=== PATIENT | male | born 1970 | race Caucasian/White ===

== ENCOUNTER 2020-11-22 19:14 | Emergency (ER) | payer SELFPAY ==
[2020-11-22 19:27] VITALS: BP 117/80; PULSE 112; RESP 17; TEMP 36.6; O2SAT 96; BMI 19.3
[2020-11-22 19:40] VITALS: BP 117/86; PULSE 112; RESP 18; TEMP 36.8; O2SAT 97
--- NOTE | 2020-11-22 19:42 | PC.NURSE ---
Patient does not tolerate procedures, pinches and bites at staff, sat in floor when xray came and refused to get up. Patient companion caregiver trying to calm patient at this time.
--- NOTE | 2020-11-22 19:51 | PC.NURSE ---
FSBS when arriving to room 437, doctor notified.
[2020-11-22 19:52] LABS: Glucose Point of Care 437 mg/dL (70-110)
--- NOTE | 2020-11-22 20:05 | CTR_ITS ---
PROCEDURE INFORMATION: Exam: CT Abdomen And Pelvis With Contrast Exam date and time: 11/22/2020 8:05 PM Age: 50 years old Clinical indication: Abdominal pain; Localized; Right upper quadrant (ruq); Prior surgery; Surgery type: Gb; Patient HX: Ruq pain TECHNIQUE: Imaging protocol: Computed tomography of the abdomen and pelvis with contrast. Radiation optimization: All CT scans at this facility use at least one of these dose optimization techniques: automated exposure control; mA and/or kV adjustment per patient size (includes targeted exams where dose is matched to clinical indication); or iterative reconstruction. Contrast material: OMNI 300; Contrast volume: 95 ml; Contrast route: INTRAVENOUS (IV); COMPARISON: No relevant prior studies available. RADIATION DOSE METRICS: Total DLP (mGy-cm): 972.34 FINDINGS: Liver: Normal. No mass. Gallbladder and bile ducts: Cholecystectomy. Mild diffuse dilation of the biliary system. Pancreas: The pancreatic head is unremarkable. Pancreatic body and tail are not clearly seen and possibly absent. Spleen: Negative for splenomegaly. Adrenal glands: Normal. No mass. Kidneys and ureters: Normal. No hydronephrosis. Stomach and bowel: No inflammatory bowel wall thickening changes are identified. Negative for bowel obstruction. Negative for bowel perforation. Moderate fecal volume. Appendix: No evidence of appendicitis. Intraperitoneal space: Unremarkable. No free air. No significant fluid collection. Vasculature: The main portal vein is patent, but substantially dilated up to 2.9 cm. The splenic vein is tortuous and moderately dilated. Abdominal aorta is nonaneurysmal. Scattered atherosclerotic plaque. Lymph nodes: Unremarkable. No enlarged lymph nodes. Urinary bladder: Unremarkable as visualized. Reproductive: Unremarkable as visualized. Bones/joints: There is a focal concavity of the superior endplate at T11. Vertebral alignment is unremarkable. Moderate severity L3-L4 level degenerative disc disease. Soft tissues: Unremarkable. CT/CT abdomen pelvis w con* [id number] IMPRESSION: Negative for acute abdominopelvic abnormality. Radiation Dose CTDIVOL = (mGy): DLP = 972.34 (mGy-cm)
--- NOTE | 2020-11-22 20:13 | ED_ITS ---
HPI - Abdominal Pain General: Chief Complaint: Abdominal Pain Stated Complaint: Needs Insulent Time Seen by Provider: 11/22/20 19:38 History of Present Illness: HPI narrative: 50-year-old male with a history of insulin-dependent diabetes and pancreatitis. He says he is been in pain for 3 days. He ran out of insulin 3 days ago, and has not had any. His blood sugar has steadily started to rise. He is thrown up several times today and several times yesterday as well. His pain is in the epigastrium and left upper quadrant. No fever. He says he has a history of a pancreatic pseudocyst and had surgery 1 time for this. MD elicited complaint: abdominal pain Pertinent past history: other Onset (ago): day(s) Pain Consistency: constant Location: Epigastric and LUQ Severity: severe Quality: stabbing and aching Radiation: none Migration to: no migration Exacerbating factors: vomiting and movement Relieving factors: nothing Associated Symptoms: Reports GI cramping, nausea, poor appetite and vomiting; Denies change in stool character, fever(s), hematuria, hematemesis and loose stools Review of Systems Const: Denies: fever(s) GI: Reports: nausea, vomiting and GI cramping; Denies: hematemesis or change in stool character : Denies: hematuria Physical Exam Const: GENERAL APPEARANCE: cooperative, ill appearing and frail appearing NUTRITIONAL APPEARANCE: thin ORIENTATION/CONSCIOUSNESS: Yes awake, Yes oriented to person, Yes oriented to place and Yes oriented to time HENMT: HEAD & SCALP: other (Small abrasions to scalp) Chest: COMMONS NORMALS: normal inspection of the chest Resp: COMMON NORMALS: normal respiratory effort, No use of accessory muscles and clear to auscultation bilaterally AUSCULTATION: clear to auscultation bilaterally Cardio: COMMON NORMALS: regular rate and regular rhythm RATE: regular rate RHYTHM: regular rhythm GI: INSPECTION: Yes normal to inspection AUSCULTATION: Yes Hypoactive bowel sounds present PALPATION: Yes Tenderness to palpation present (GI) Details: LUQ and No Rebound tenderness present Neuro: SENSORIUM/ORIENTATION: Yes oriented to person, Yes oriented to place and Yes oriented to time Course Vital Signs: Vital signs: Vital Signs Temperature 97.5 F L 11/22/20 21:58 Pulse Rate 88 11/22/20 21:58 Respiratory Rate 18 11/22/20 21:58 Blood Pressure 144/97 11/22/20 21:58 Pulse Oximetry 98 11/22/20 21:58 MDM - Abdominal Pain MDM Narrative: Medical decision making narrative: Blood sugar was down to 309 after 2 L of fluid. White blood cell count is 12.6. Other labs are benign including a lipase of 24, normal liver enzymes. CT of the belly is negative for acute problems. He is asking for more pain medication currently. We will give him some. He was given 8 units of IV insulin. When his blood sugar is down further, he will be released on his home doses of insulin. Lab Data: Labs: Lab Results 11/22/20 11/22/20 11/22/20 Range/Units 19:49 19:55 19:55 WBC 12.6 H (4.0-10.0) 10^3/ uL RBC 4.68 (4.1-5.3) 10^6/u L Hgb 13.4 (11.7-16.6) g/dL Hct 39.9 L (42.0-52.0) % MCV 85.3 (80-94) fl MCH 28.6 (28.0-34.0) pg MCHC 33.6 (30.0-36.0) g/dL RDW 15.6 H (12.1-15.1) % Plt Count 222 (130-400) 10^3/c mm MPV 10.9 H (7.4-10.4) fL Neut % (Auto) 60.1 % Lymph % (Auto) 31.8 % [place] % (Auto) 7.0 % Eos % (Auto) 0.3 % Baso % (Auto) 0.4 % Neut # (Auto) 7.55 (1.8-7.7) 10^3/u L Lymph # (Auto) 4.0 (0.8-4.8) 10^3/u L [place] # (Auto) 0.9 (0.2-0.9) 10^3/u L Eos # (Auto) 0.0 (0.0-0.8) 10^3/u L Baso # (Auto) 0.1 (0.0-0.1) 10^3/u L Nucleated RBC % (a uto) 0 % Nucleated RBCs # 0.0 /100WBC Specimen Type Sample Site ABG pH (7.35-7.45) ABG pCO2 (35-45) mmHg ABG pO2 (80.0-100.0) mmH g ABG HCO3 (22-26) mmol/L ABG Base Excess (-2.0-2.0) mmol/ L Venkata Test Hematocrit (42-52) % O2 Delivery Device Database Security Administrator ID Sodium 133 L (136-145) mmol/L Potassium 4.4 (3.5-5.1) mmol/L Chloride 92 L (98-107) mmol/L Carbon Dioxide 28 (22-29) mmol/L Anion Gap 17.4 (5-19) BUN 19 (6-20) mg/dL Creatinine 0.7 (0.7-1.2) mg/dL GFR Calculation 120.4 (90-130) mL/min Glucose 402 H (65-115) mg/dL POC Glucose 437 H (70-110) mg/dL Calculated Osmolal ity 295 (285-295) mOsm/k g Lactate (0.5-2.2) mmol/L Calcium 9.4 (8.5-10.5) mg/dL Total Bilirubin 0.4 (0.15-1.2) mg/dL AST 8 (0-40) U/L ALT 6 (0-41) U/L Alkaline Phosphata se 84 (40-130) IU/L Creatine Kinase 52 (39-308) U/L C-Reactive Protein 7.6 H (0.0-4.9) mg/L Total Protein 7.1 (6.6-8.7) g/dL Albumin 4.5 (3.5-5.2) g/dL Globulin 2.6 (1.3-4.6) g/dL Lipase 24 (13-60) U/L Procalcitonin 0.06 (0-0.5) ng/mL Urine Color (Yellow) Urine Appearance (CLEAR) Urine pH (5-7) Ur Specific Gravit y (1.005-1.030) Urine Protein (Negative) Urine Glucose (UA) (Normal) Urine Ketones (Negative) Urine Blood (Negative) Urine Nitrate (Negative) Urine Bilirubin (Negative) Urine Urobilinogen (Negative) mg/dL Ur Leukocyte Viry ase (Negative) Serum Ketones (Negative) 11/22/20 11/22/20 11/22/20 Range/Units 19:55 19:55 19:55 WBC (4.0-10.0) 10^3/ uL RBC (4.1-5.3) 10^6/u L Hgb (11.7-16.6) g/dL Hct (42.0-52.0) % MCV (80-94) fl MCH (28.0-34.0) pg MCHC (30.0-36.0) g/dL RDW (12.1-15.1) % Plt Count (130-400) 10^3/c mm MPV (7.4-10.4) fL Neut % (Auto) % Lymph % (Auto) % [place] % (Auto) % Eos % (Auto) % Baso % (Auto) % Neut # (Auto) (1.8-7.7) 10^3/u L Lymph # (Auto) (0.8-4.8) 10^3/u L [place] # (Auto) (0.2-0.9) 10^3/u L Eos # (Auto) (0.0-0.8) 10^3/u L Baso # (Auto) (0.0-0.1) 10^3/u L Nucleated RBC % (a uto) % Nucleated RBCs # /100WBC Specimen Type Sample Site ABG pH (7.35-7.45) ABG pCO2 (35-45) mmHg ABG pO2 (80.0-100.0) mmH g ABG HCO3 (22-26) mmol/L ABG Base Excess (-2.0-2.0) mmol/ L Venkata Test Hematocrit (42-52) % O2 Delivery Device Database Security Administrator ID Sodium (136-145) mmol/L Potassium (3.5-5.1) mmol/L Chloride (98-107) mmol/L Carbon Dioxide (22-29) mmol/L Anion Gap (5-19) BUN (6-20) mg/dL Creatinine (0.7-1.2) mg/dL GFR Calculation (90-130) mL/min Glucose (65-115) mg/dL POC Glucose (70-110) mg/dL Calculated Osmolal ity (285-295) mOsm/k g Lactate 1.5 (0.5-2.2) mmol/L Calcium (8.5-10.5) mg/dL Total Bilirubin (0.15-1.2) mg/dL AST (0-40) U/L ALT (0-41) U/L Alkaline Phosphata se (40-130) IU/L Creatine Kinase (39-308) U/L C-Reactive Protein (0.0-4.9) mg/L Total Protein (6.6-8.7) g/dL Albumin (3.5-5.2) g/dL Globulin (1.3-4.6) g/dL Lipase (13-60) U/L Procalcitonin (0-0.5) ng/mL Urine Color Yellow (Yellow) Urine Appearance Clear (CLEAR) Urine pH 5 (5-7) Ur Specific Gravit y 1.010 (1.005-1.030) Urine Protein Neg (Negative) Urine Glucose (UA) 4+ H (Normal) Urine Ketones 1+ H (Negative) Urine Blood Neg (Negative) Urine Nitrate Negative (Negative) Urine Bilirubin Neg (Negative) Urine Urobilinogen Norm (Negative) mg/dL Ur Leukocyte Viry ase Negative (Negative) Serum Ketones Negative (Negative) 11/22/20 11/22/20 11/22/20 Range/Units 20:30 22:05 23:20 WBC (4.0-10.0) 10^3/ uL RBC (4.1-5.3) 10^6/u L Hgb (11.7-16.6) g/dL Hct (42.0-52.0) % MCV (80-94) fl MCH (28.0-34.0) pg MCHC (30.0-36.0) g/dL RDW (12.1-15.1) % Plt Count (130-400) 10^3/c mm MPV (7.4-10.4) fL Neut % (Auto) % Lymph % (Auto) % [place] % (Auto) % Eos % (Auto) % Baso % (Auto) % Neut # (Auto) (1.8-7.7) 10^3/u L Lymph # (Auto) (0.8-4.8) 10^3/u L [place] # (Auto) (0.2-0.9) 10^3/u L Eos # (Auto) (0.0-0.8) 10^3/u L Baso # (Auto) (0.0-0.1) 10^3/u L Nucleated RBC % (a uto) % Nucleated RBCs # /100WBC Specimen Type Arterial Sample Site Radial, left ABG pH 7.42 (7.35-7.45) ABG pCO2 42.1 (35-45) mmHg ABG pO2 73.9 L (80.0-100.0) mmH g ABG HCO3 27.1 H (22-26) mmol/L ABG Base Excess 2.3 H (-2.0-2.0) mmol/ L Venkata Test Pos Hematocrit 37.8 L (42-52) % O2 Delivery Device Room air Database Security Administrator ID [email or web address] Sodium (136-145) mmol/L Potassium (3.5-5.1) mmol/L Chloride (98-107) mmol/L Carbon Dioxide (22-29) mmol/L Anion Gap (5-19) BUN (6-20) mg/dL Creatinine (0.7-1.2) mg/dL GFR Calculation (90-130) mL/min Glucose (65-115) mg/dL POC Glucose 304 H 231 H (70-110) mg/dL Calculated Osmolal ity (285-295) mOsm/k g Lactate (0.5-2.2) mmol/L Calcium (8.5-10.5) mg/dL Total Bilirubin (0.15-1.2) mg/dL AST (0-40) U/L ALT (0-41) U/L Alkaline Phosphata se (40-130) IU/L Creatine Kinase (39-308) U/L C-Reactive Protein (0.0-4.9) mg/L Total Protein (6.6-8.7) g/dL Albumin (3.5-5.2) g/dL Globulin (1.3-4.6) g/dL Lipase (13-60) U/L Procalcitonin (0-0.5) ng/mL Urine Color (Yellow) Urine Appearance (CLEAR) Urine pH (5-7) Ur Specific Gravit y (1.005-1.030) Urine Protein (Negative) Urine Glucose (UA) (Normal) Urine Ketones (Negative) Urine Blood (Negative) Urine Nitrate (Negative) Urine Bilirubin (Negative) Urine Urobilinogen (Negative) mg/dL Ur Leukocyte Viry ase (Negative) Serum Ketones (Negative) Discharge Plan Discharge Patient Disposition: Home Clinical Impression: Hyperglycemia due to diabetes mellitus Condition: Stable Prescriptions: New Lantus Solostar U-100 Insulin 100 unit/mL (3 mL) insulin pen 80 unit SUBCUT DAILY Qty: 15 RF: 0 Zofran 4 mg tablet 4 mg PO Q6H PRN (Reason: nausea and vomiting) Qty: 10 RF: 0 Discharge Orders: Discharge ED (Routine); Ordered 11/22/20 Ordered By: Yayo Ibarra Activity Restrictions/Additional Instructions: Return for worsening abdominal pain, vomiting liquids or medications, fever greater than 100, any other concerning symptoms. Coding Level of Care Code ED Electrical Maintenance Worker for Ira Fwd Exam Detailed
[2020-11-22 20:15] LABS: Add Urine Microscopic? NO; Charge for UA Resulting for Rev
[2020-11-22] MEDS: sodium chloride 0.9% 1,000 ML 999 ML IV ×2 (20:19→21:15)
[2020-11-22] MEDS: ondansetron 2 mg/ML SDV 2 mL 4 MG IVP (20:20)
[2020-11-22 20:22] VITALS: RESP 18; O2SAT 97
[2020-11-22] MEDS: morphine 4 mg/mL SDV 1 mL IVP (20:22)
[2020-11-22 20:25] LABS: Basophils # 0.1 10^3/uL (0.0-0.1); Basophils % 0.4 %; Eosinophils % 0.3 %; Hematocrit 39.9 % (42.0-52.0); Hemoglobin 13.4 g/dL (11.7-16.6); Lymphocytes % 31.8 %; Mean Corpuscular HGB Conc 33.6 g/dL (30.0-36.0); Mean Corpuscular Hemoglobin 28.6 pg (28.0-34.0); Mean Corpuscular Volume 85.3 fl (80-94); Mean Platelet Volume 10.9 fL (7.4-10.4); Monocytes # 0.9 10^3/uL (0.2-0.9); Neutrophils # 7.55 10^3/uL (1.8-7.7); Neutrophils % 60.1 %; Nucleated Red Blood Cells % 0 %; Platelet Count 222 10^3/cmm (130-400); Red Blood Count 4.68 10^6/uL (4.1-5.3); Red Cell Distribution Width 15.6 % (12.1-15.1); White Blood Count 12.6 10^3/uL (4.0-10.0)
[2020-11-22 20:34] LABS: Bilirubin Urine Neg (Negative); Blood Urine Neg (Negative); Glucose Urine UA 4+ (Normal); Ketones Urine 1+ (Negative); Leukocyte Esterase Urine Negative (Negative); Nitrate Urine Negative (Negative); Protein Urine Neg (Negative); Urine Appearance Clear (CLEAR); Urine Color Yellow (Yellow); Urobilinogen Urine Norm (Negative); pH Urine 5 (5-7)
[2020-11-22 20:35] LABS: ABG PCO2 42.1 mmHg (35-45); ABG PH Result 7.42 (7.35-7.45); Arterial Blood Gas Hematocrit 37.8 % (42-52); Base Excess ABG 2.3 mmol/L (-2.0-2.0); Blood Gas Allen Test Pos; Blood Gas Sample Site Radial, left; Blood Gas Sample Type Arterial; HCO3 ABG 27.1 mmol/L (22-26); Oxygen Device ROOM AIR; PO2 ABG 73.9 mmHg (80.0-100.0)
[2020-11-22 20:37] VITALS: BP 123/81; PULSE 93; RESP 97; TEMP 36.8; O2SAT 98
[2020-11-22 20:41] LABS: Ketone (Acetest) Serum Negative (Negative)
[2020-11-22 20:49] LABS: Lactate (Lactic Acid level) 1.5 mmol/L (0.5-2.2)
[2020-11-22 20:52] LABS: Alanine Aminotransferase 6 U/L (0-41); Albumin Level 4.5 g/dL (3.5-5.2); Alkaline Phosphatase 84 IU/L (40-130); Anion Gap 17.4 (5-19); Aspartate Amino Transferase 8 U/L (0-40); Blood Urea Nitrogen 19 mg/dL (6-20); C Reactive Protein 7.6 mg/L (0.0-4.9); Calcium 9.4 mg/dL (8.5-10.5); Carbon Dioxide 28 mmol/L (22-29); Chloride 92 mmol/L (98-107); Creatine Phosphokinase 52 U/L (39-308); Globulin 2.6 g/dL (1.3-4.6); Glomerular Filtration Rate 120.4 mL/min (90-130); Glucose 402 mg/dL (65-115); Lipase 24 U/L (13-60); Osmolality Calculated 295 mOsm/kg (285-295); Potassium 4.4 mmol/L (3.5-5.1); Sodium 133 mmol/L (136-145); Total Bilirubin 0.4 mg/dL (0.15-1.2); Total Protein 7.1 g/dL (6.6-8.7)
[2020-11-22 20:59] LABS: Procalcitonin 0.06 ng/mL (0-0.5)
[2020-11-22] MEDS: iohexol 300 mg/mL 100 mL Btl IV (21:32)
[2020-11-22 21:58] VITALS: BP 144/97; PULSE 88; RESP 18; TEMP 36.4; O2SAT 98
[2020-11-22 22:08] LABS: Glucose Point of Care 304 mg/dL (70-110)
[2020-11-22] MEDS: insulin regular-human 100 units/1 mL 8 UNIT IVP (22:34)
[2020-11-22 23:24] LABS: Glucose Point of Care 231 mg/dL (70-110)
[2020-11-22] MEDS: fentaNYL 50 mcg/mL INJ 2mL IVP (23:24)
[2020-11-23] MEDS: ketorolac 30 mg/mL INJ 15 MG IVP (00:03)
[2020-11-23 00:05] VITALS: BP 101/67; PULSE 88; RESP 17; TEMP 36.6; O2SAT 98
== END 2020-11-23 00:07 | disposition home or self-care (01) ==
PROVIDERS: Emergency Provider Emergency Medicine
DX: E11.65 Type 2 diabetes mellitus with hyperglycemia (principal); Z79.4 Long term (current) use of insulin
CPT/HCPCS: 36416; 36600; 74177; 80053; 81003; 82009; 82550; 82803; 82962; 83605; 83690; 84145; 85025; 86140; 96361; 96374; 96375; 99284; J1815; J1885; J2270; J2405; J3010; J7030; Q9967

== ENCOUNTER 2021-04-17 13:27 | Emergency (ER) | payer SELFPAY ==
--- NOTE | 2021-04-17 13:28 | W.ED.ABDPA2 ---
HPI - Abdominal Pain General: Chief Complaint: Abdominal Pain Stated Complaint: PANCREATITIS ATTACK Time Seen by Provider: 04/17/21 13:28 History of Present Illness: HPI narrative: Mr Alfaro is a 51-year-old gentleman with reported history of prior cholecystectomy and removal of pancreatic pseudocyst with what he describes as pancreas attached to stomach and recurrent episodes of pancreatitis who presents to the emergency department due to abdominal pain. Symptom onset was subacute approximately 3 days ago without specific known provoking factor. He seen multiple episodes of vomiting and poor p.o. intake. Vomiting is elicited by any attempted p.o. intake. After a number of episodes of vomiting he does have small amounts of blood. No significant chest pain. Abdominal pain is severe in intensity in the epigastric region. Feels similar to prior episodes. No other signs of systemic illness, exacerbating, or relieving factors identified. MD elicited complaint: abdominal pain Pertinent past history: other (pancreatitis) Onset (ago): day(s) Pain Consistency: constant Location: Epigastric Severity: severe Quality: stabbing and aching Migration to: other (back) Exacerbating factors: eating Relieving factors: nothing Associated Symptoms: Reports nausea and vomiting; Denies change in stool character Review of Systems General: Reports: 10 or more systems reviewed and unremarkable except in HPI and below GI: Reports: nausea and vomiting; Denies: change in stool character PFSH ED PFSH: Medical History History of pancreatitis Hyperglycemia due to diabetes mellitus Pancreatic pseudocyst Surgical History History of cholecystectomy History of laparotomy History of pancreatic surgery Social History (Updated 04/23/21 @ 18:19 by Dexter Lanza MD) Substance/Drug Use: current Substance/Drug use type: Marijuana Physical Exam Const: COMMON NORMALS: alert GENERAL APPEARANCE: not comfortable OTHER: uncomfortable appearance due to pain HENMT: COMMON NORMALS: normocephalic and atraumatic HEAD & SCALP: normocephalic and atraumatic THROAT: posterior oropharynx normal OTHER: scratches on scalp Eye: COMMON NORMALS: conjunctivae normal CONJUNCTIVA: Yes conjunctivae normal SCLERA: sclerae normal Neck/C-Spine: COMMON NORMALS: supple GENERAL: Yes trachea midline Resp: COMMON NORMALS: normal respiratory effort EFFORT & INSPECTION: Yes able to speak in complete sentences Cardio: COMMON NORMALS: regular rate and regular rhythm RATE: regular rate RHYTHM: regular rhythm GI: COMMON NORMALS: Soft to palpation PALPATION: Yes Soft to palpation, Yes Tenderness to palpation present (GI) Details: other (epigrastric) and No Rigid due to palpation OTHER: prior midline lap incision, well healed Extremity: GENERAL: Yes normal exam except as noted and No edema Neuro: COMMON NORMALS: moves all extremities SENSORIUM/ORIENTATION: Yes alert and No Orientation impaired Psych: COMMON NORMALS: mental status grossly normal and Normal thought process present THOUGHT PROCESS: Normal thought process present Skin: OTHER: BLE scars from reported prior frankel Course ED course: - Patient was seen and evaluated by me at bedside - Patient placed on cardiac monitors, IV access obtained - Initial evaluation notable for exam as above - Fluids, analgesia, and antiemetic given - Labs notable for mild leukocytosis, metabolic panel with evidence of dehydration. Glucose is mildly elevated however I suspect that this is stress-induced. Unfortunately we are not able to perform serum ketones at this time due to being out of reagent. In the absence of other DKA symptoms, and in the context of normal arterial pH, I believe that symptoms are not related to DKA. - Imaging notable for no acute finding requiring acute intervention at the for symptom treatment. - Upon serial reexamination after treatment the patient was improved. He tolerated p.o. intake. Despite last recorded heart rate heart rate had actually improved on my exam. - Based on patient history, evaluation, labs, and imaging as interpreted the most likely cause of the patient's condition is abdominal pain with nausea and vomiting likely reflecting pancreatitis though patient does not meet strict diagnostic criteria given low lipase and CT findings. Low lipase in the context of multiple prior episodes of pancreatitis is a known finding. - The results of ED evaluation were discussed with the patient including prescriptions and/or symptomatic cares (if applicable) including appropriate and responsible use, followup plan, and return precautions. The patient verbalized understanding and felt safe for discharge. - Patient discharged in satisfactory condition. Note: Click bubbles or prepopulated gomze in note writing are used for assistance with data collection and billing and are inherently more limited than narrative and other text portions of this note. Please use narrative for additional clinical history and defer to narrative/free test for any case of contradictory information. If information appears in only free text or click bubble it should be considered present or absent as reported. Please contact note production underwriter for clarifications of clinical information or contradictory information. MDM is a brief summary, contradictory or erroneous seeming information should be clarified and full note should be referred to in cases of contradiction or lack of clarity. Vital Signs: Vital signs: Vital Signs Temperature 97.8 F 04/17/21 13:30 Pulse Rate 102 H 04/17/21 13:30 Respiratory Rate 17 04/17/21 14:06 Blood Pressure 137/108 04/17/21 13:30 Pulse Oximetry 96 04/17/21 13:30 MDM - Abdominal Pain MDM Narrative: Medical decision making narrative: 51-year-old gentleman presenting with abdominal pain, nausea, vomiting. History of pancreatitis and patient reports similar. Improved with IV fluid resuscitation and analgesia/antiemetic. Patient tolerated p.o. intake. Satisfactory for attempted outpatient management though will almost certainly need admission if he returns. Medical Records: Attestation: I reviewed the patient's medical records. Lab Data: Attestation: I reviewed the patient's lab results. Labs: Lab Results 04/17/21 04/17/21 04/17/21 13:30 13:30 14:14 WBC 11.2 10^3/uL H 10 ^3/uL (4.0-10.0) RBC 5.56 10^6/uL H 10 ^6/uL (4.1-5.3) Hgb 15.4 g/dL g/dL (11.7-16.6) Hct 46.0 % % (42.0-52.0) MCV 82.7 fl fl (80-94) MCH 27.7 pg L pg (28.0-34.0) MCHC 33.5 g/dL g/dL (30.0-36.0) RDW 13.3 % % (12.1-15.1) Plt Count 286 10^3/cmm 10^3 /cmm (130-400) MPV 11.4 fL H fL (7.4-10.4) Neut % (Auto) 71.8 % % Lymph % (Auto) 21.7 % % [place] % (Auto) 5.2 % % Eos % (Auto) 0.4 % % Baso % (Auto) 0.2 % % Neut # (Auto) 8.03 10^3/uL H 10 ^3/uL (1.8-7.7) Lymph # (Auto) 2.4 10^3/uL 10^3/ uL (0.8-4.8) [place] # (Auto) 0.6 10^3/uL 10^3/ uL (0.2-0.9) Eos # (Auto) 0.0 10^3/uL 10^3/ uL (0.0-0.8) Baso # (Auto) 0.0 10^3/uL 10^3/ uL (0.0-0.1) Nucleated RBC % (a uto) 0 % % Nucleated RBCs # 0.0 /100WBC /100W BC Specimen Type Sample Site ABG pH ABG pCO2 ABG pO2 ABG HCO3 ABG Base Excess Venkata Test Hematocrit O2 Delivery Device FiO2 Mincing Machine Operator ID Sodium 132 mmol/L L mmol /L (136-145) Potassium 4.2 mmol/L mmol/L (3.5-5.1) Chloride 86 mmol/L L mmol/ L (98-107) Carbon Dioxide 30 mmol/L H mmol/ L (22-29) Anion Gap 20.2 H (5-19) BUN 23 mg/dL H mg/dL (6-20) Creatinine 0.8 mg/dL mg/dL (0.7-1.2) GFR Calculation 102.7 mL/min mL/m in (90-130) Glucose 280 mg/dL H mg/dL (65-115) Calculated Osmolal ity 288 mOsm/kg mOsm/ kg (285-295) Lactic Acid 1.7 mmol/L mmol/L (0.5-2.2) Calcium 9.2 mg/dL mg/dL (8.5-10.5) Total Bilirubin 1.1 mg/dL mg/dL (0.15-1.2) AST 12 U/L U/L (0-40) ALT 7 U/L U/L (0-41) Alkaline Phosphata se 82 IU/L IU/L (40-130) Total Protein 8.3 g/dL g/dL (6.6-8.7) Albumin 5.0 g/dL g/dL (3.5-5.2) Globulin 3.3 g/dL g/dL (1.3-4.6) Lipase 11 U/L L U/L (13-60) SARS-CoV-2 Ag (Rap id) 04/17/21 04/17/21 14:33 15:27 WBC RBC Hgb Hct MCV MCH MCHC RDW Plt Count MPV Neut % (Auto) Lymph % (Auto) [place] % (Auto) Eos % (Auto) Baso % (Auto) Neut # (Auto) Lymph # (Auto) [place] # (Auto) Eos # (Auto) Baso # (Auto) Nucleated RBC % (a uto) Nucleated RBCs # Specimen Type Arterial Sample Site Brachial, right ABG pH 7.39 (7.35-7.45) ABG pCO2 43.2 mmHg mmHg (35-45) ABG pO2 78.2 mmHg L mmHg (80.0-100.0) ABG HCO3 25.9 mmol/L mmol/ L (22-26) ABG Base Excess 0.5 mmol/L mmol/L (-2.0-2.0) Venkata Test N/a Hematocrit 39.7 % L % (42-52) O2 Delivery Device Room air FiO2 21.0 % % Mincing Machine Operator ID Amh Sodium Potassium Chloride Carbon Dioxide Anion Gap BUN Creatinine GFR Calculation Glucose Calculated Osmolal ity Lactic Acid Calcium Total Bilirubin AST ALT Alkaline Phosphata se Total Protein Albumin Globulin Lipase SARS-CoV-2 Ag (Rap id) Negative (Negative) Discharge Plan Discharge Patient Disposition: Home Clinical Impression: Abdominal pain, epigastric, Nausea and vomiting in adult, Pancreatitis, recurrent, Dehydration Condition: Stable Prescriptions: New oxycodone 5 mg tablet 5 mg PO Q4H PRN (Reason: pain) Qty: 10 RF: 0 No Action Lantus Solostar U-100 Insulin 100 unit/mL (3 mL) insulin pen 80 unit SUBCUT QAM RF: 0 Protonix 40 mg tablet,delayed release (DR/EC) 40 mg PO BID 14 Days Qty: 28 RF: 0 Discharge Orders: Discharge ED (Routine); Ordered 04/17/21 Ordered By: Dexter Lanza Discharge Diet: Advance as tolerated and Clear Liquid Discharge Activity: Increase activity as tolerated Patient Instructions: Pancreatitis (ED), Acute Nausea and Vomiting (ED), Abdominal Pain (ED), Opioid Safety Coding Level of Care Code ED Media Production Operator for Chg Fwd Exam Comprehensive
[2021-04-17 13:30] VITALS: BP 137/108; PULSE 102; RESP 14; TEMP 36.6; O2SAT 96; BMI 20.5
--- NOTE | 2021-04-17 13:46 | CT_ITS ---
WS: [id number] CT ABDOMEN AND PELVIS WITH CONTRAST HISTORY: epigastric pain, patient reports prior pancreas surgery TECHNIQUE: Imaging performed of the abdomen and pelvis with IV contrast. Single phase imaging of the abdomen. Coronal and sagittal reformats are submitted. All CT scans at [facility] use at [address] one of these dose optimization techniques: automated exposure control; mA and/or kV adjustment per patient size (includes targeted exams where dose is matched to clinical indication); or iterative re construction. IV CONTRAST: Omnipaque 300; 95 mL IV. Oral contrast: No DLP: 808.89 mGy.cm COMPARISON: 11/22/2020 Lower thorax: Emphysematous changes. Heart is normal size. Small hiatal hernia. Liver/biliary system: Normal size liver. There is moderate bile duct dilatation which is similar to t he prior study. Common bile duct is dilated measuring up to 9 mm. Similar to the prior study. Gallbladder: Prior cholecystectomy. Pancreas: Common bile duct and pancreatic duct at the pancreatic head or visualized and unchanged. Th e body and tail of the pancreas may have been surgically removed. There is no mass identified. Spleen: Normal size spleen. No mass or infarct. Adrenal glands: Normal. Right kidney: Normal. Left kidney: Normal. Aorta: Mild atherosclerosis aorta. Lymphadenopathy: None. Free fluid: None. GI tract: Normal appendix. There is moderate distention of the stomach with fluid. No small bowel obs truction. There is a slight increased amount of air throughout the transverse colon. No evidence for diverticulitis. Abdominal wall: Unremarkable abdominal wall. No hernia. Pelvis: No free fluid or adenopathy within the pelvis. Well-distended urinary bladder. No intralumina l filling defect. Bones: Degenerative mild thoracolumbar scoliosis. Degenerative disc disease with vacuum disc phenomen on at L3-4. CT/CT abdomen pelvis w con* [id number] IMPRESSION: 1. Prior cholecystectomy. Intrahepatic and extra hepatic bile duct dilatation is similar to the study of 11/22/2020. 2. Partial pancreatectomy. Body and tail of the pancreas are absent as per see n on the prior study. 3. No pancreatic mass identified. 4. Moderate fluid distention of the stomach. 5. Normal appendix. 6. No ascites.
[2021-04-17 14:03] LABS: Basophils % 0.2 %; Eosinophils % 0.4 %; Hemoglobin 15.4 g/dL (11.7-16.6); Lymphocytes # 2.4 10^3/uL (0.8-4.8); Lymphocytes % 21.7 %; Mean Corpuscular HGB Conc 33.5 g/dL (30.0-36.0); Mean Corpuscular Hemoglobin 27.7 pg (28.0-34.0); Mean Corpuscular Volume 82.7 fl (80-94); Mean Platelet Volume 11.4 fL (7.4-10.4); Monocytes # 0.6 10^3/uL (0.2-0.9); Monocytes % 5.2 %; Neutrophils # 8.03 10^3/uL (1.8-7.7); Neutrophils % 71.8 %; Nucleated Red Blood Cells % 0 %; Platelet Count 286 10^3/cmm (130-400); Red Blood Count 5.56 10^6/uL (4.1-5.3); Red Cell Distribution Width 13.3 % (12.1-15.1); White Blood Count 11.2 10^3/uL (4.0-10.0)
[2021-04-17 14:06] VITALS: RESP 17
[2021-04-17] MEDS: morphine 4 mg/mL SDV 1 mL IVP (14:06)
[2021-04-17] MEDS: ondansetron 2 mg/ML SDV 2 mL 4 MG IVP (14:06)
[2021-04-17] MEDS: sodium chloride 0.9% 1,000 ML 999 ML IV ×2 (14:08→15:03)
[2021-04-17 14:21] LABS: Alanine Aminotransferase 7 U/L (0-41); Alkaline Phosphatase 82 IU/L (40-130); Anion Gap 20.2 (5-19); Aspartate Amino Transferase 12 U/L (0-40); Blood Urea Nitrogen 23 mg/dL (6-20); Calcium 9.2 mg/dL (8.5-10.5); Carbon Dioxide 30 mmol/L (22-29); Chloride 86 mmol/L (98-107); Globulin 3.3 g/dL (1.3-4.6); Glomerular Filtration Rate 102.7 mL/min (90-130); Glucose 280 mg/dL (65-115); Lipase 11 U/L (13-60); Osmolality Calculated 288 mOsm/kg (285-295); Potassium 4.2 mmol/L (3.5-5.1); Sodium 132 mmol/L (136-145); Total Bilirubin 1.1 mg/dL (0.15-1.2); Total Protein 8.3 g/dL (6.6-8.7)
[2021-04-17 14:41] LABS: Lactic Sepsis W/Reflex 1.7 mmol/L (0.5-2.2)
[2021-04-17] MEDS: diphenhydrAMINE 50 mg/mL SDV 1mL 25 MG IVP (15:04)
[2021-04-17] MEDS: metoclopramide 5 mg/mL SDV 2 mL 10 MG IVP (15:05)
--- NOTE | 2021-04-17 15:35 | XRR_ITS ---
PROCEDURE INFORMATION: Exam: XR Chest Exam date and time: 04/17/2021 3:35 PM Age: 51 years old Clinical indication: Other: Hematemesis; Additional info: Hematemesis, tachycardia TECHNIQUE: Imaging protocol: XR of the chest. Views: 1 view. COMPARISON: CT abdomen pelvis w con* [id number] 04/17/2021 2:21 PM FINDINGS: Lungs: Unremarkable. No consolidation. Pleural spaces: Unremarkable. No pleural effusion. No pneumothorax. Heart/Mediastinum: Unremarkable. No cardiomegaly. Bones/joints: Unremarkable. XR/XR chest 1V portable [id number] IMPRESSION: No acute findings.
[2021-04-17 15:39] LABS: ABG PCO2 43.2 mmHg (35-45); ABG PH Result 7.39 (7.35-7.45); Arterial Blood Gas Hematocrit 39.7 % (42-52); Base Excess ABG 0.5 mmol/L (-2.0-2.0); Blood Gas Operator Identificat AMH; Blood Gas Sample Site Brachial, right; Blood Gas Sample Type Arterial; HCO3 ABG 25.9 mmol/L (22-26); Oxygen Device ROOM AIR; PO2 ABG 78.2 mmHg (80.0-100.0)
[2021-04-17 16:26] LABS: SARS Covid-2 Antigen Negative (Negative)
--- NOTE | 2021-04-17 16:29 | PC.PHAR ---
pt states he takes care of his own medications-pt states he hasnt used his lantus solostar in 3 days-pt states he had a build up of this medication ext med history shows last filled 11/23/20 18d/s-ext med history shows prozac 10mg last filled 12/23/20 30d/s pt states hes not taking
[2021-04-17] MEDS: iohexol 300 mg/mL 100 mL Btl IV (17:30)
== END 2021-04-17 19:10 | disposition home or self-care (01) ==
PROVIDERS: Emergency Provider Emergency Medicine
DX: K85.90 Acute pancreatitis without necrosis or infection, unspecified (principal); E86.0 Dehydration; Z79.4 Long term (current) use of insulin; E11.9 Type 2 diabetes mellitus without complications; Z20.822 Contact with and (suspected) exposure to COVID-19
CPT/HCPCS: 36600; 71045; 74177; 80053; 82803; 83605; 83690; 85025; 87426; 96361; 96374; 96375; 99284; J1200; J2270; J2405; J2765; J7030; Q9967

== ENCOUNTER 2021-04-18 05:53 | Observation (INO) | payer SELFPAY ==
[2021-04-18] VITALS (9 sets, daily range): BP systolic 107–176; BP diastolic 85–95; PULSE 60–95; RESP 12–18; TEMP 36.4–36.5; O2SAT 92–98; BMI 20.5
[2021-04-18 06:01] LABS: Glucose Point of Care 203 mg/dL (70-110)
[2021-04-18] MEDS: sodium chloride 0.9% 1,000 ML 999 ML IV ×2 (06:13→07:50)
[2021-04-18 06:15] LABS: Basophils % 0.4 %; Eosinophils % 0.3 %; Hematocrit 41.3 % (42.0-52.0); Hemoglobin 13.7 g/dL (11.7-16.6); Lymphocytes # 3.5 10^3/uL (0.8-4.8); Lymphocytes % 38.5 %; Mean Corpuscular HGB Conc 33.2 g/dL (30.0-36.0); Mean Corpuscular Hemoglobin 27.6 pg (28.0-34.0); Mean Corpuscular Volume 83.3 fl (80-94); Mean Platelet Volume 11.1 fL (7.4-10.4); Monocytes # 0.7 10^3/uL (0.2-0.9); Monocytes % 7.8 %; Neutrophils # 4.78 10^3/uL (1.8-7.7); Neutrophils % 52.8 %; Nucleated Red Blood Cells % 0 %; Platelet Count 193 10^3/cmm (130-400); Red Blood Count 4.96 10^6/uL (4.1-5.3); Red Cell Distribution Width 13.2 % (12.1-15.1); White Blood Count 9.1 10^3/uL (4.0-10.0)
[2021-04-18 06:32] LABS: Alanine Aminotransferase 6 U/L (0-41); Albumin Level 4.3 g/dL (3.5-5.2); Alkaline Phosphatase 69 IU/L (40-130); Anion Gap 17.3 (5-19); Aspartate Amino Transferase 12 U/L (0-40); Blood Urea Nitrogen 17 mg/dL (6-20); C Reactive Protein 0.3 mg/L (0.0-4.9); Calcium 9.4 mg/dL (8.5-10.5); Carbon Dioxide 25 mmol/L (22-29); Chloride 85 mmol/L (98-107); Globulin 2.7 g/dL (1.3-4.6); Glomerular Filtration Rate 119.9 mL/min (90-130); Glucose 191 mg/dL (65-115); Lipase 154 U/L (13-60); Osmolality Calculated 265 mOsm/kg (285-295); Potassium 3.3 mmol/L (3.5-5.1); Sodium 124 mmol/L (136-145); Total Bilirubin 0.9 mg/dL (0.15-1.2)
[2021-04-18 06:45] LABS: Lactate (Lactic Acid level) 1.3 mmol/L (0.5-2.2)
[2021-04-18] MEDS: HYDROmorphone 1 mg/mL INJ 1 mL IVP (07:00)
[2021-04-18] MEDS: ondansetron 2 mg/ML SDV 2 mL 4 MG IVP (07:00)
--- NOTE | 2021-04-18 07:14 | ED_ITS ---
HPI - Abdominal Pain General: Chief Complaint: ER Hold Stated Complaint: abd pain Time Seen by Provider: 04/18/21 06:01 History of Present Illness: HPI narrative: 51-year-old male presents emergency room complaining of left upper quadrant abdominal pain he was seen yesterday with severe left upper quadrant abdominal pain he described having pancreatitis he has a history of recurrent pancreatitis he was evaluated including advanced imaging there is no evidence of severe pancreatitis he was discharged home with oxycodone Zofran he did not take any of this. He never had the prescription filled he returned this morning again complaining of severe pain with nausea but no vomiting or diarrhea. MD elicited complaint: abdominal pain Pertinent past history: other (Pancreatitis) Onset (ago): day(s) Pain Consistency: constant Location: LUQ Severity: severe Quality: cramping and stabbing Radiation: L flank Relieving factors: nothing Associated Symptoms: Reports anorexia, bloating, GI cramping, nausea, poor appetite and vomiting; Denies belching, change in bowel habits, change in stool character, chills, coffee ground emesis, constipation, diarrhea, dyspepsia, dysuria, excessive flatus, fever(s), heartburn, hematochezia, hematuria, hematemesis, fecal incontinence, loose stools, melena and syncope Review of Systems Const: Denies: fever(s) or chills ENMT: Denies: throat pain, ear or mastoid pain, nasal discharge or nasal congestion Card: Denies: syncope Resp: Denies: dyspnea, productive cough or non-productive cough GI: Reports: nausea, vomiting, bloating and GI cramping; Denies: hematemesis, coffee ground emesis, heartburn, diarrhea, constipation, belching, excessive flatus, fecal incontinence, change in bowel habits, change in stool character, hematochezia or melena : Denies: dysuria or hematuria Skin/Breast: Denies: rash or pruritus PFSH ED PFSH: Medical History History of pancreatitis Hyperglycemia due to diabetes mellitus Pancreatic pseudocyst Surgical History History of cholecystectomy History of laparotomy History of pancreatic surgery Physical Exam Const: COMMON NORMALS: no acute distress GENERAL APPEARANCE: cooperative and comfortable ORIENTATION/CONSCIOUSNESS: Yes awake, Yes oriented to person, Yes oriented to place and Yes oriented to time HENMT: COMMON NORMALS: normocephalic, atraumatic and hearing grossly normal bilaterally HEAD & SCALP: normocephalic and atraumatic Resp: COMMON NORMALS: normal respiratory effort, No retractions, No use of accessory muscles and clear to auscultation bilaterally AUSCULTATION: clear to auscultation bilaterally Cardio: COMMON NORMALS: regular rate, regular rhythm and No murmurs present (Cardio) RATE: regular rate RHYTHM: regular rhythm GI: COMMON NORMALS: No hepatosplenomegaly present PALPATION: Yes Tenderness to palpation present (GI) Details: LUQ, No Guarding due to palpation present (GI) and Yes No hepatosplenomegaly present Extremity: COMMON NORMALS: normal to inspection, capillary refill normal, no clubbing, cyanosis or edema, no calf tenderness and no pedal edema Neuro: SENSORIUM/ORIENTATION: Yes oriented to person, Yes oriented to place and Yes oriented to time Skin: COMMON NORMALS: no rashes or lesions noted GENERAL SKIN EXAM: no rashes or lesions noted Course Vital Signs: Vital signs: Vital Signs Temperature 97.3 F L 04/19/21 11:38 Pulse Rate 92 04/19/21 11:38 Respiratory Rate 24 H 04/19/21 11:38 Blood Pressure 165/101 04/19/21 11:38 Pulse Oximetry 99 04/19/21 11:38 MDM - Abdominal Pain MDM Narrative: Medical decision making narrative: Patient seen yesterday his lipase is significantly increased. He is complaining of severe abdominal discomfort we will go ahead and admit discussed with the hospitalist orders written. With his persistent nausea and vomiting he has developed some dehydration he will require IV fluid support n.p.o. pain and antiemetic medications. Orders written Lab Data: Labs: Lab Results 04/18/21 04/18/21 04/18/21 05:46 05:46 05:46 WBC 9.1 10^3/uL 10^3/ uL (4.0-10.0) RBC 4.96 10^6/uL 10^6 /uL (4.1-5.3) Hgb 13.7 g/dL g/dL (11.7-16.6) Hct 41.3 % L % (42.0-52.0) MCV 83.3 fl fl (80-94) MCH 27.6 pg L pg (28.0-34.0) MCHC 33.2 g/dL g/dL (30.0-36.0) RDW 13.2 % % (12.1-15.1) Plt Count 193 10^3/cmm D 1 0^3/cmm (130-400) MPV 11.1 fL H fL (7.4-10.4) Neut % (Auto) 52.8 % % Lymph % (Auto) 38.5 % % Haines % (Auto) 7.8 % % Eos % (Auto) 0.3 % % Baso % (Auto) 0.4 % % Neut # (Auto) 4.78 10^3/uL 10^3 /uL (1.8-7.7) Lymph # (Auto) 3.5 10^3/uL 10^3/ uL (0.8-4.8) Haines # (Auto) 0.7 10^3/uL 10^3/ uL (0.2-0.9) Eos # (Auto) 0.0 10^3/uL 10^3/ uL (0.0-0.8) Baso # (Auto) 0.0 10^3/uL 10^3/ uL (0.0-0.1) Nucleated RBC % (a uto) 0 % % Nucleated RBCs # 0.0 /100WBC /100W BC Sodium 124 mmol/L L mmol /L (136-145) Potassium 3.3 mmol/L L mmol /L (3.5-5.1) Chloride 85 mmol/L L mmol/ L (98-107) Carbon Dioxide 25 mmol/L mmol/L (22-29) Anion Gap 17.3 (5-19) BUN 17 mg/dL mg/dL (6-20) Creatinine 0.7 mg/dL mg/dL (0.7-1.2) GFR Calculation 119.9 mL/min mL/m in (90-130) Glucose 191 mg/dL H mg/dL (65-115) POC Glucose Calculated Osmolal ity 265 mOsm/kg L mOs m/kg (285-295) Lactate Calcium 9.4 mg/dL mg/dL (8.5-10.5) Total Bilirubin 0.9 mg/dL mg/dL (0.15-1.2) AST 12 U/L U/L (0-40) ALT 6 U/L U/L (0-41) Alkaline Phosphata se 69 IU/L IU/L (40-130) C-Reactive Protein 0.3 mg/L mg/L (0.0-4.9) Total Protein 7.0 g/dL g/dL (6.6-8.7) Albumin 4.3 g/dL g/dL (3.5-5.2) Globulin 2.7 g/dL g/dL (1.3-4.6) Triglycerides 136 mg/dL mg/dL (0-150) Cholesterol 209 mg/dL H mg/dL (0-200) LDL Cholesterol, C alc 145 mg/dL H mg/dL (50-129) HDL Cholesterol 37 mg/dL L mg/dL (60-100) LDL/HDL Ratio 3.92 RATIO H RATI O (0.00-3.22) Cholesterol/HDL Ra mika 5.65 mg/dL H mg/d L (1.0-5.00) Lipase 154 U/L H U/L (13-60) Procalcitonin TSH 1.02 uIU/mL uIU/m L (0.27-4.20) Urine Color Urine Appearance Urine pH Ur Specific Gravit y Urine Protein Urine Glucose (UA) Urine Ketones Urine Blood Urine Nitrate Urine Bilirubin Urine Urobilinogen Ur Leukocyte Viry ase Urine Opiates Scre en Ur Barbiturates Sc reen Ur Phencyclidine S crn Ur Amphetamines Sc reen U Benzodiazepines Scrn Urine Cocaine Scre en U Marijuana (THC) Screen 04/18/21 04/18/21 04/18/21 05:46 05:58 06:20 WBC RBC Hgb Hct MCV MCH MCHC RDW Plt Count MPV Neut % (Auto) Lymph % (Auto) Haines % (Auto) Eos % (Auto) Baso % (Auto) Neut # (Auto) Lymph # (Auto) Haines # (Auto) Eos # (Auto) Baso # (Auto) Nucleated RBC % (a uto) Nucleated RBCs # Sodium Potassium Chloride Carbon Dioxide Anion Gap BUN Creatinine GFR Calculation Glucose POC Glucose 203 mg/dL H mg/dL (70-110) Calculated Osmolal ity Lactate 1.3 mmol/L mmol/L (0.5-2.2) Calcium Total Bilirubin AST ALT Alkaline Phosphata se C-Reactive Protein Total Protein Albumin Globulin Triglycerides Cholesterol LDL Cholesterol, C alc HDL Cholesterol LDL/HDL Ratio Cholesterol/HDL Ra mika Lipase Procalcitonin 0.02 ng/mL ng/mL (0-0.5) TSH Urine Color Urine Appearance Urine pH Ur Specific Gravit y Urine Protein Urine Glucose (UA) Urine Ketones Urine Blood Urine Nitrate Urine Bilirubin Urine Urobilinogen Ur Leukocyte Viry ase Urine Opiates Scre en Ur Barbiturates Sc reen Ur Phencyclidine S crn Ur Amphetamines Sc reen U Benzodiazepines Scrn Urine Cocaine Scre en U Marijuana (THC) Screen 04/18/21 04/18/21 07:56 07:56 WBC RBC Hgb Hct MCV MCH MCHC RDW Plt Count MPV Neut % (Auto) Lymph % (Auto) Haines % (Auto) Eos % (Auto) Baso % (Auto) Neut # (Auto) Lymph # (Auto) Haines # (Auto) Eos # (Auto) Baso # (Auto) Nucleated RBC % (a uto) Nucleated RBCs # Sodium Potassium Chloride Carbon Dioxide Anion Gap BUN Creatinine GFR Calculation Glucose POC Glucose Calculated Osmolal ity Lactate Calcium Total Bilirubin AST ALT Alkaline Phosphata se C-Reactive Protein Total Protein Albumin Globulin Triglycerides Cholesterol LDL Cholesterol, C alc HDL Cholesterol LDL/HDL Ratio Cholesterol/HDL Ra mika Lipase Procalcitonin TSH Urine Color Dark yellow (Yellow) Urine Appearance Clear (CLEAR) Urine pH 6 (5-7) Ur Specific Gravit y 1.020 (1.005-1.030) Urine Protein Neg (Negative) Urine Glucose (UA) Trace H (Normal) Urine Ketones 2+ H (Negative) Urine Blood Neg (Negative) Urine Nitrate Negative (Negative) Urine Bilirubin 1+ H (Negative) Urine Urobilinogen 1 mg/dL H mg/dL (Negative) Ur Leukocyte Viry ase Negative (Negative) Urine Opiates Scre en Positive ng/mL H ng/mL (Negative) Ur Barbiturates Sc reen Negative ng/mL ng /mL (Negative) Ur Phencyclidine S crn Negative ng/mL ng /mL (Negative) Ur Amphetamines Sc reen Negative ng/mL ng /mL (Negative) U Benzodiazepines Scrn Negative ng/mL ng /mL (Negative) Urine Cocaine Scre en Negative ng/mL ng /mL (Negative) U Marijuana (THC) Screen Positive ng/mL H ng/mL (Negative) Discharge Plan Discharge Patient Disposition: Admitted As Inpatient Admit Provider: Bette Ferris Clinical Impression: Pancreatitis Condition: Stable Discharge Diet: Diabetic Discharge Activity: Resume usual activity Coding Level of Care Code ED Parts Expediter for Chg Fwd Exam Detailed
[2021-04-18 08:03] LABS: Add Urine Microscopic? NO; Charge for UA Resulting for Rev
[2021-04-18 08:08] LABS: Glucose Urine UA Trace (Normal); Protein Urine Neg (Negative); Urine Appearance Clear (CLEAR); Urine Color Dark Yellow (Yellow); pH Urine 6 (5-7)
[2021-04-18 08:09] LABS: Bilirubin Urine 1+ (Negative); Blood Urine Neg (Negative); Ketones Urine 2+ (Negative); Leukocyte Esterase Urine Negative (Negative); Nitrate Urine Negative (Negative); Urobilinogen Urine 1 mg/dL (Negative)
[2021-04-18 08:14] LABS: Amphetamines Screen Urine Negative (Negative); Barbiturates Screen Urine Negative (Negative); Benzodiazepines Screen Urine Negative (Negative); Cocaine Screen Urine Negative (Negative); Opiate Screen Urine Positive (Negative); PCP Screen Urine Negative (Negative); THC Screen Urine Positive (Negative)
--- NOTE | 2021-04-18 08:21 | PM.HP ---
Providers/Chief Complaint Chief Complaint: abd pain History of Present Illness Robin Alfaro is a 51 year old male with past medical history of diabetes on insulin, pancreatic pseudocyst and history of pancreatitis and cholecystectomy presented to the ER today with complaint of nausea and vomiting and some diarrhea. Of note he did present to the ER yesterday and was sent home with pain medication. CT abdomen done yesterday did not show acute pancreatitis. Today his lipase is 150 and he continues to have nausea vomiting and some epigastric pain. He states he takes Lantus at home but has not taken in the last 3 days due to him not eating and unable to keep food down. Denies chest pain, shortness of breath, abdominal pain otherwise in any other region. He does have lower extremity pain but says is chronic due to his diabetic peripheral neuropathy. He is not on any medications for it. Patient also states that he does not have insurance and is unable to purchase medications. He has 1 pen of insulin left at home. Patient is a smoker but does not want a nicotine patch at this time. He also uses medical marijuana. Does not drink alcohol. ED course: Blood pressure 145/92, respirate 18, pulse rate 82, 97.7 Fahrenheit temperature on arrival. States he just had CT abdomen done yesterday imaging was not repeated. Lipase 150 today. WBC normal. Sodium 124. He did appear dehydrated. Review of Systems General: Reports: 10 or more systems reviewed and unremarkable except in HPI and below Medications/Allergies Home Medications Medication Instructions Recorded Confirmed Last Taken Type insulin glargine [Lantus Solostar 80 unit SUBCUT QAM 04/17/21 04/18/21 04/17/21 History U-100 Insulin] ondansetron 4 mg PO Q8H PRN 5 Days #15 tab MDD 04/17/21 04/18/21 Unknown Rx see pharmacy comment oxycodone 5 mg PO Q4H PRN #10 tab MDD see 04/17/21 04/18/21 Unknown Rx pharmacy comment Allergies Allergy/AdvReac Type Severity Reaction Status Date / Time Penicillins Allergy Unknown Verified 04/17/21 16:28 PFSH Acute PFSH: Medical History History of pancreatitis Hyperglycemia due to diabetes mellitus Pancreatic pseudocyst Surgical History History of cholecystectomy History of laparotomy History of pancreatic surgery Vitals/I&O/Wt Last Vital Signs Temp 97.7 F 04/18/21 06:33 Pulse 80 04/18/21 07:14 Resp 12 04/18/21 07:14 BP 145/92 04/18/21 06:33 Pulse Ox 96 04/18/21 07:14 04/17/21 04/18/21 04/18/21 22:59 06:59 14:59 Intake Total 1000 / 1000 Balance 1000 / 1000 Weight last 48 hrs Weight 72.575 kg Physical Exam Narrative: EXAM NARRATIVE: General: Alert oriented x3, patient seen sitting up in bed appearing comfortable. HEENT: Normocephalic, atraumatic, EOMI, breathing room air. Cardio: Regular rate rhythm, normal S1-S2, no murmur_ Respiratory: Good bilateral air entry, no wheezes no rhonchi appreciated GI: Abdomen soft, nontender, nondistended, bowel sounds +, abdomen exam is very unremarkable. Behavior: Appropriate and cooperative Extremities: Pulses 2+, no edema, no cyanosis, does have very dry skin. Data : 04/18/21 05:46 04/18/21 05:46 A&P Assessment and plan (1) Abdominal pain, epigastric: Status: Acute (2) Nausea and vomiting in adult: Status: Acute (3) Dehydration: Status: Acute (4) Pancreatitis, recurrent: Status: Acute Additional A&P Information #Possible pancreatitis, lipase elevated to 150, yesterday was 17. #Nausea vomiting diarrhea #Dehydration #Diabetes mellitus ?We will place on insulin sliding scale and hold off on home Lantus. ? We will use Toradol for pain management. I will avoid Dilaudid or morphine at this time. ? Urine drug screen is positive for opiates and marijuana. Patient was given opiates yesterday in the ER. And he does use medical marijuana. ? I will place him on LR 150 cc/h. He was given a trial of clear liquids but he did not tolerate. I will make him n.p.o. except sips and chips at this time. ? We will start him on insulin as sugars increase ? Patient slightly hypertensive which could be secondary to pain. ? I will check COVID PCR with history of nausea vomiting diarrhea ? He has not had diarrhea since yesterday and has not vomited since yesterday. He continues to be nauseous. I will give him Zofran. ? We will observe patient overnight in the hospital with possible discharge tomorrow if he feels better. ? I will check a lipase level tomorrow morning and possibly repeat imaging if patient's clinical picture worsens. Full code DVT prophylaxis Lovenox. Attestations Medical Necessity Statement*: Observation in the hospital tonight. If clinically better by tomorrow we will discharge. Coding Level of Care Code Acute Campaign Specialist for Ira Moyd Diagnoses Abdominal pain, epigastric R10.13 Nausea and vomiting in adult R11.2 Dehydration E86.0 Pancreatitis, recurrent K85.90
[2021-04-18] MEDS: pantoprazole 40 mg SDV IVP (09:26)
[2021-04-18] MEDS: lactated ringers 1,000 ML 150 ML IV ×2 (09:27→22:22)
[2021-04-18] MEDS: heparin 5,000 unit/mL INJ 1 mL 5000 UNIT SUBCUT (09:29)
[2021-04-18 09:49] LABS: Procalcitonin 0.02 ng/mL (0-0.5)
[2021-04-18 09:50] LABS: Chol HDL Ratio 5.65 mg/dL (1.0-5.00); Cholesterol 209 mg/dL (0-200); HDL Cholesterol 37 mg/dL (60-100); LDL Cholesterol Calculated 145 mg/dL (50-129); LDL HDL Ratio 3.92 RATIO (0.00-3.22); Thyroid Stimulating Hormone 1.02 uIU/mL (0.27-4.20); Triglycerides 136 mg/dL (0-150)
[2021-04-18 10:11] LABS: Lactic Sepsis W/Reflex 0.9 mmol/L (0.5-2.2)
[2021-04-18] MEDS: ketorolac 30 mg/mL INJ IVP ×2 (13:28→18:24)
[2021-04-18] MEDS: promethazine 25 mg/mL SDV 1 mL IM (14:02)
[2021-04-18] MEDS: lidocaine 1% 5 ML in potassium chloride premix 100 ML 25 ML IV (18:06)
[2021-04-18 18:14] LABS: Glucose Point of Care 161 mg/dL (70-110)
[2021-04-18] MEDS: insulin lispro 100 unit/1 mL SUBCUT (18:25)
[2021-04-18 20:16] LABS: Glucose Point of Care 45 mg/dL (70-110)
[2021-04-18] MEDS: dextrose 50% syringe 50 mL 25 ML IVP (20:22)
[2021-04-18] MEDS: dextrose 5 % 500 ML 100 ML IV (20:25)
[2021-04-19] VITALS: BP 117/71; PULSE 63; RESP 16; O2SAT 97
[2021-04-19] MEDS: ketorolac 30 mg/mL INJ IVP ×2 (03:44→11:49)
[2021-04-19] MEDS: ondansetron 2 mg/ML SDV 2 mL 4 MG IVP ×2 (03:52→11:50)
[2021-04-19 04:00] VITALS: BP 145/95; PULSE 65; RESP 16; TEMP 36.9; O2SAT 97
[2021-04-19] MEDS: lactated ringers 1,000 ML 150 ML IV ×2 (05:05→11:49)
--- NOTE | 2021-04-19 05:41 | PC.NURSE ---
Summary When pt arrived to unit blood sugar was 45, D50 given along with D5W 500mL. Recheck was 111. LR started from previous orders. Pt has slept all night, given Toradol and Zofran once for complaints of nausea and pain. Pt had requested to have the phengren shot in the arm, its the only thing that work upon arrival to floor. Dr Cano notified, new order received for PO phenergan if nausea not relieved by zofran.
[2021-04-19 06:42] LABS: Glucose Point of Care 134 mg/dL (70-110)
[2021-04-19 06:42] LABS: Glucose Point of Care 111 mg/dL (70-110)
[2021-04-19 07:01] LABS: Basophils % 0.5 %; Eosinophils % 0.5 %; Hematocrit 36.3 % (42.0-52.0); Hemoglobin 12.1 g/dL (11.7-16.6); Lymphocytes # 1.7 10^3/uL (0.8-4.8); Mean Corpuscular HGB Conc 33.3 g/dL (30.0-36.0); Mean Corpuscular Hemoglobin 27.6 pg (28.0-34.0); Mean Corpuscular Volume 82.7 fl (80-94); Mean Platelet Volume 11.4 fL (7.4-10.4); Monocytes # 0.2 10^3/uL (0.2-0.9); Monocytes % 6.3 %; Neutrophils # 1.86 10^3/uL (1.8-7.7); Neutrophils % 48.4 %; Nucleated Red Blood Cells % 0 %; Platelet Count 105 10^3/cmm (130-400); Red Blood Count 4.39 10^6/uL (4.1-5.3); White Blood Count 3.8 10^3/uL (4.0-10.0)
[2021-04-19 07:11] LABS: Alanine Aminotransferase 6 U/L (0-41); Albumin Level 3.6 g/dL (3.5-5.2); Alkaline Phosphatase 55 IU/L (40-130); Anion Gap 14.6 (5-19); Aspartate Amino Transferase 17 U/L (0-40); Blood Urea Nitrogen 10 mg/dL (6-20); Carbon Dioxide 24 mmol/L (22-29); Chloride 100 mmol/L (98-107); Globulin 2.1 g/dL (1.3-4.6); Glomerular Filtration Rate 143.2 mL/min (90-130); Glucose 129 mg/dL (65-115); Osmolality Calculated 281 mOsm/kg (285-295); Potassium 3.6 mmol/L (3.5-5.1); Sodium 135 mmol/L (136-145); Total Bilirubin 0.6 mg/dL (0.15-1.2); Total Protein 5.7 g/dL (6.6-8.7)
[2021-04-19 07:33] LABS: Lipase 14 U/L (13-60)
[2021-04-19 07:50] LABS: Chol HDL Ratio 4.66 mg/dL (1.0-5.00); Cholesterol 163 mg/dL (0-200); HDL Cholesterol 35 mg/dL (60-100); LDL Cholesterol Calculated 106 mg/dL (50-129); LDL HDL Ratio 3.03 RATIO (0.00-3.22); Triglycerides 109 mg/dL (0-150)
[2021-04-19 07:52] VITALS: BP 140/79; PULSE 71; RESP 16; TEMP 36.4; O2SAT 98
--- NOTE | 2021-04-19 08:38 | PC.NURSE ---
patient states that he is hurting and the toradol is not helping he stated I'm miserable and could be this uncomfortable at home. If I cant get anything else I'm just going to check myself out Dr. Ferris notified. patient refused physical assessment at this time.
--- NOTE | 2021-04-19 08:39 | PM.DCS ---
Discharge Providers Date of Admission: 04/18/21 08:17 Date of Discharge: April 19, 2021 Attending Provider at Admission: Bette Ferris MD Attending Provider at Discharge: Bette Ferris MD Diagnoses at Discharge Discharge Diagnosis (1) Abdominal pain, epigastric: Status: Acute (2) Nausea and vomiting in adult: Status: Acute (3) Dehydration: Status: Acute (4) Pancreatitis, recurrent: Status: Acute Reason for Visit Reason for Visit: abd pain Discharge Data Data Completed and Pending: Pending at discharge Category Date Time Status Coronavirus PCR S tat Lab 04/18/21 14:20 Ordered Labs from last 24 hours 04/19/21 04/19/21 04/19/21 06:34 06:00 06:00 WBC RBC Hgb Hct MCV MCH MCHC RDW Plt Count MPV Neut % (Auto) Lymph % (Auto) [place] % (Auto) Eos % (Auto) Baso % (Auto) Neut # (Auto) Lymph # (Auto) [place] # (Auto) Eos # (Auto) Baso # (Auto) Nucleated RBC % (a uto) Nucleated RBCs # Sodium Potassium Chloride Carbon Dioxide Anion Gap BUN Creatinine GFR Calculation Glucose POC Glucose 134 H Calculated Osmolal ity Lactic Acid Calcium Total Bilirubin AST ALT Alkaline Phosphata se Total Protein Albumin Globulin Triglycerides 109 Cholesterol 163 LDL Cholesterol, C alc 106 HDL Cholesterol 35 L LDL/HDL Ratio 3.03 Cholesterol/HDL Ra mika 4.66 Lipase 14 Procalcitonin TSH 04/19/21 04/19/21 04/18/21 06:00 06:00 21:01 WBC 3.8 L RBC 4.39 Hgb 12.1 Hct 36.3 L MCV 82.7 MCH 27.6 L MCHC 33.3 RDW 13.0 Plt Count 105 L D MPV 11.4 H Neut % (Auto) 48.4 Lymph % (Auto) 44.0 [place] % (Auto) 6.3 Eos % (Auto) 0.5 Baso % (Auto) 0.5 Neut # (Auto) 1.86 Lymph # (Auto) 1.7 [place] # (Auto) 0.2 Eos # (Auto) 0.0 Baso # (Auto) 0.0 Nucleated RBC % (a uto) 0 Nucleated RBCs # 0.0 Sodium 135 L Potassium 3.6 Chloride 100 Carbon Dioxide 24 Anion Gap 14.6 BUN 10 Creatinine 0.6 L GFR Calculation 143.2 H Glucose 129 H POC Glucose 111 H Calculated Osmolal ity 281 L Lactic Acid Calcium 8.0 L Total Bilirubin 0.6 AST 17 ALT 6 Alkaline Phosphata se 55 Total Protein 5.7 L Albumin 3.6 Globulin 2.1 Triglycerides Cholesterol LDL Cholesterol, C alc HDL Cholesterol LDL/HDL Ratio Cholesterol/HDL Ra mika Lipase Procalcitonin TSH 04/18/21 04/18/21 04/18/21 20:08 18:10 09:43 WBC RBC Hgb Hct MCV MCH MCHC RDW Plt Count MPV Neut % (Auto) Lymph % (Auto) [place] % (Auto) Eos % (Auto) Baso % (Auto) Neut # (Auto) Lymph # (Auto) [place] # (Auto) Eos # (Auto) Baso # (Auto) Nucleated RBC % (a uto) Nucleated RBCs # Sodium Potassium Chloride Carbon Dioxide Anion Gap BUN Creatinine GFR Calculation Glucose POC Glucose 45 L 161 H Calculated Osmolal ity Lactic Acid 0.9 Calcium Total Bilirubin AST ALT Alkaline Phosphata se Total Protein Albumin Globulin Triglycerides Cholesterol LDL Cholesterol, C alc HDL Cholesterol LDL/HDL Ratio Cholesterol/HDL Ra mika Lipase Procalcitonin TSH 04/18/21 04/18/21 05:46 05:46 WBC RBC Hgb Hct MCV MCH MCHC RDW Plt Count MPV Neut % (Auto) Lymph % (Auto) [place] % (Auto) Eos % (Auto) Baso % (Auto) Neut # (Auto) Lymph # (Auto) [place] # (Auto) Eos # (Auto) Baso # (Auto) Nucleated RBC % (a uto) Nucleated RBCs # Sodium Potassium Chloride Carbon Dioxide Anion Gap BUN Creatinine GFR Calculation Glucose POC Glucose Calculated Osmolal ity Lactic Acid Calcium Total Bilirubin AST ALT Alkaline Phosphata se Total Protein Albumin Globulin Triglycerides 136 Cholesterol 209 H LDL Cholesterol, C alc 145 H HDL Cholesterol 37 L LDL/HDL Ratio 3.92 H Cholesterol/HDL Ra mika 5.65 H Lipase Procalcitonin 0.02 TSH 1.02 Vitals: Last Vital Signs Temp 97.5 F L 04/19/21 07:52 Pulse 71 04/19/21 07:52 Resp 16 04/19/21 07:52 BP 140/79 04/19/21 07:52 Pulse Ox 98 04/19/21 07:52 Discharge Plan Discharge Patient Disposition: Home Condition: Stable Prescriptions: Continued Lantus Solostar U-100 Insulin 100 unit/mL (3 mL) insulin pen 80 unit SUBCUT QAM RF: 0 ondansetron 4 mg tablet,disintegrating 4 mg PO Q8H MDD see pharmacy comment PRN (Reason: nausea and vomiting) 5 Days Qty: 15 RF: 0 oxycodone 5 mg tablet 5 mg PO Q4H MDD see pharmacy comment PRN (Reason: pain) Qty: 10 RF: 0 Referrals: Shanti Rizzo DO [Physician] - 1 week (Please call Tuesday morning to schedule a hospital follow-up appointment. ) Discharge Diet: Diabetic Discharge Activity: Resume usual activity Patient Instructions: Pancreatitis (GEN), Opioid Safety Coding Level of Care Code Acute Chg [facility] note Diagnoses Abdominal pain, epigastric R10.13 Nausea and vomiting in adult R11.2 Dehydration E86.0 Pancreatitis, recurrent K85.90
--- NOTE | 2021-04-19 09:48 | CTR_ITS ---
PROCEDURE INFORMATION: Exam: CT Abdomen And Pelvis With Contrast Exam date and time: 04/19/2021 9:48 AM Age: 51 years old Clinical indication: Abdominal pain; Prior surgery; Surgery type: Pancreas surgey 2 years ago; Patient HX: Epigastric pain after eating , looking for pancreatitis; Additional info: Pancreatic protocol, call md if order is confusing. Need pancreatic protocol TECHNIQUE: Imaging protocol: Computed tomography of the abdomen and pelvis with contrast. Axial, coronal and sagittal reformatted images were created and reviewed. Radiation optimization: All CT scans at this facility use at least one of these dose optimization techniques: automated exposure control; mA and/or kV adjustment per patient size (includes targeted exams where dose is matched to clinical indication); or iterative reconstruction. Contrast material: OMNI 300; Contrast volume: 95 ml; Contrast route: INTRAVENOUS (IV); COMPARISON: CT abdomen pelvis w con* [id number] 04/17/2021 2:21 PM RADIATION DOSE METRICS: Total DLP (mGy-cm): 1334.33 FINDINGS: Diaphragm: Small hiatal hernia with contrast in the distal esophagus, suggesting reflux. Liver: Unremarkable. Gallbladder and bile ducts: Status post cholecystectomy. Mild central biliary ductal dilatation, similar to prior and likely postsurgical. Pancreas: Status post partial pancreatectomy. Spleen: Coarse calcified splenic granuloma. Adrenal glands: Normal. No mass. Kidneys and ureters: No mass. No radiodense calculi. No hydronephrosis. Stomach and bowel: No bowel wall thickening. No obstruction. No pneumatosis. Appendix: Normal. Intraperitoneal space: No free fluid. No organized fluid collection. No free air. Vasculature: Mild to moderate atherosclerotic disease. No aneurysm or dissection. Lymph nodes: No pathologically enlarged lymph nodes. Urinary bladder: Mild circumferential urinary bladder wall thickening, possibly secondary to underdistention. Reproductive: Unremarkable. Bones/joints: No acute osseous abnormality. Osteopenia. Degenerative changes. Soft tissues: Unremarkable. CT/CT abdomen pelvis w con* [id number]: 1[address] No CT evidence of acute intra-abdominal or pelvic pathology. 2. Additional findings, as above.
[2021-04-19] MEDS: morphine 4 mg/mL SDV 1 mL 2 MG IVP (10:24)
[2021-04-19] MEDS: lidocaine 2% viscous 15 ML, aluminum-mag hydrox-simethicon 30 ML, sucralfate oral liq 1 GM PO (10:27)
[2021-04-19] MEDS: pantoprazole 40 mg SDV IVP (10:27)
[2021-04-19 11:38] VITALS: BP 165/101; PULSE 92; RESP 24; TEMP 36.3; O2SAT 99
[2021-04-19 12:14] LABS: Glucose Point of Care 244 mg/dL (70-110)
--- NOTE | 2021-04-19 12:14 | PM.PN ---
Subjective Subjective: Interval history: Seen this AM. He was going to go home today but as soon as he ate, he developed excruciating pain in epigastric region that he started crying loudly (but without tears). He could not find a comfortable position. Pain was radiating to left side of back. Morphine 2 mg IV x1 was given to him. Case was curbside discussed with Dr. Salomon. We will proceed with CT abdomen with pancreas protocol. Vitals/I&O/Wt Last Vital Signs Temp 97.3 F L 04/19/21 11:38 Pulse 92 04/19/21 11:38 Resp 24 H 04/19/21 11:38 BP 165/101 04/19/21 11:38 Pulse Ox 99 04/19/21 11:38 04/18/21 04/19/21 04/19/21 22:59 06:59 14:59 Intake Total 1105 / 3105 1500 / 4605 1360 / 1360 Balance 1105 / 3105 1500 / 4605 1360 / 1360 Weight last 48 hrs Weight 72.575 kg Physical Exam Narrative: EXAM NARRATIVE: General: Alert oriented x3, having excruciating eigastric pain radiating to left side of back after eating. HEENT: Normocephalic, atraumatic, EOMI, breathing room air. Cardio: Regular rate rhythm, normal S1-S2, no murmur_ Respiratory: Good bilateral air entry, no wheezes no rhonchi appreciated GI: Abdomen soft, nontender, nondistended, bowel sounds +, Abdomen is non tender when palpated. Behavior: Appropriate and cooperative Extremities: Pulses 2+, no edema, no cyanosis Data : 04/19/21 06:00 04/19/21 06:00 A&P Assessment and plan (1) Abdominal pain, epigastric: Status: Acute (2) Nausea and vomiting in adult: Status: Acute (3) Dehydration: Status: Acute (4) Pancreatitis, recurrent: Status: Acute Additional A&P Information #Possible pancreatitis, lipase elevated to 150 on admission, yesterday was 17. #Nausea vomiting diarrhea - resolved #Dehydration - resolved #Diabetes mellitus #Hyponatremia: Resolved. ?We will place on insulin sliding scale and hold off on home Lantus. ? We will use Toradol for pain management. Gave 1x morphine. ? Urine drug screen is positive for opiates and marijuana. ? Continue LR 150 cc/h. He was given a trial of clear liquids but he did not tolerate. We gave GI soft diet today but pt developed pain - He could have possible gastritis as well. Will start protonix and sucralfate. He may need gastric emtpying study and outpatient EGD. Will refer to Dr. Salomon as outpatient. ? We will start him on insulin as sugars increase ? Patient slightly hypertensive which could be secondary to pain. Trend has been higer side. Will start amlodipine 10 mg daily. ?COVID PCR pending. ? COntinue zofran ? Repeat lipase level normal. - CT abdomen with pancreas protocol pending. - If scan comes ok today, he will be given outpatient follow up with Dr. Salomon and as long as tolerating a diet, he can be discharged. Full code DVT prophylaxis Lovenox. Case management referral for assistance with medication purchases. Attestations Medical Necessity Statement*: > 24 hour stay due to abdominal pain and not being able to tolerate a diet. Coding Level of Care Code Acute Operations Chief for Chg Fwd Diagnoses Abdominal pain, epigastric R10.13 Nausea and vomiting in adult R11.2 Dehydration E86.0 Pancreatitis, recurrent K85.90
[2021-04-19] MEDS: iohexol 300 mg/mL 50 mL Btl PO (13:28)
[2021-04-19] MEDS: iohexol 300 mg/mL 100 mL Btl IV (13:28)
--- NOTE | 2021-04-19 15:05 | P.DS_ITS ---
Discharge Providers Date of Admission: 04/18/21 08:17 Date of Discharge: April 19, 2021 Attending Provider at Admission: Bette Ferris MD Attending Provider at Discharge: Bette Ferris MD Diagnoses at Discharge Discharge Diagnosis (1) Abdominal pain, epigastric: Status: Acute (2) Nausea and vomiting in adult: Status: Acute (3) Dehydration: Status: Acute (4) Pancreatitis, recurrent: Status: Acute Reason for Visit Reason for Visit: abd pain Hospital Course Hospital Course Pt left the hospital without having a complete evaluation. He was admitted for possible acute pancreatitis and dehydration. He was given IV fluids and toradol for pain. After having breakfast this morning, he started having epigastric pain for which he was given morphine. He felt better for a while until he started complaining of pain again. Pt also pulled out his IV multiple times during the stay and cried without tears and was really loud on the floor. manager materials management discussed with his brother over the phone who told us patient is living in a pop up camper at this time and is doing poorly financially. He also does not have insurance at this time and is self pay. Brother recommended that we get psychiatry to see him for possible depression. I placed a psych consult with Dr. Toro and informed him of the patient. Dr Toro was to see him shortly. In the mean time, nurse called me over the phone to inform me that patient is having pain again at this time. I right away called and discussed with Dr. Salomon to consult on the patient for evaluation incase something was being missed as repeat CT scan with pancreatic protocol was negative today. I also ordered another morphine IV dose. RN went to room to tell patient about surgery consult. Patient stated he wanted to leave AMA and got up and started to walk out of the hospital. I was called by RN to be informed of this. I immediately went to walk over the [facility] floor and I met patient in hallway as he was leaving. I tried to talk to him and tell him of the plan of surgical consult and the fact that we had ordered pain medication for him and that we need to evaluate him further. Patient refused to listen to anything I had to say and did not stop for a second to discuss anything further. He kept walking and left. Unsure if he actually signed any AMA forms. Discharge Data Data Completed and Pending: Completed Studies During Hospitalization Category Date Time Status CT abdomen pelvis w con* [id number] Stat Cat Scan 04/19/21 09:48 Completed Pending at discharge Category Date Time Status Basic Metabolic P shawn AM LABS Lab 04/20/21 04:00 Ordered Complete Blood Co unt w/Auto AM LABS Lab 04/20/21 04:00 Ordered Coronavirus PCR S tat Lab 04/18/21 14:20 Ordered Helicobacter Pylo ri AG Stool Stat Lab 04/19/21 09:51 Uncollected Labs from last 24 hours 04/19/21 04/19/21 04/19/21 11:34 06:34 06:00 WBC RBC Hgb Hct MCV MCH MCHC RDW Plt Count MPV Neut % (Auto) Lymph % (Auto) [place] % (Auto) Eos % (Auto) Baso % (Auto) Neut # (Auto) Lymph # (Auto) [place] # (Auto) Eos # (Auto) Baso # (Auto) Nucleated RBC % (a uto) Nucleated RBCs # Sodium Potassium Chloride Carbon Dioxide Anion Gap BUN Creatinine GFR Calculation Glucose POC Glucose 244 H 134 H Calculated Osmolal ity Calcium Total Bilirubin AST ALT Alkaline Phosphata se Total Protein Albumin Globulin Triglycerides 109 Cholesterol 163 LDL Cholesterol, C alc 106 HDL Cholesterol 35 L LDL/HDL Ratio 3.03 Cholesterol/HDL Ra mika 4.66 Lipase 04/19/21 04/19/21 04/19/21 06:00 06:00 06:00 WBC 3.8 L RBC 4.39 Hgb 12.1 Hct 36.3 L MCV 82.7 MCH 27.6 L MCHC 33.3 RDW 13.0 Plt Count 105 L D MPV 11.4 H Neut % (Auto) 48.4 Lymph % (Auto) 44.0 [place] % (Auto) 6.3 Eos % (Auto) 0.5 Baso % (Auto) 0.5 Neut # (Auto) 1.86 Lymph # (Auto) 1.7 [place] # (Auto) 0.2 Eos # (Auto) 0.0 Baso # (Auto) 0.0 Nucleated RBC % (a uto) 0 Nucleated RBCs # 0.0 Sodium 135 L Potassium 3.6 Chloride 100 Carbon Dioxide 24 Anion Gap 14.6 BUN 10 Creatinine 0.6 L GFR Calculation 143.2 H Glucose 129 H POC Glucose Calculated Osmolal ity 281 L Calcium 8.0 L Total Bilirubin 0.6 AST 17 ALT 6 Alkaline Phosphata se 55 Total Protein 5.7 L Albumin 3.6 Globulin 2.1 Triglycerides Cholesterol LDL Cholesterol, C alc HDL Cholesterol LDL/HDL Ratio Cholesterol/HDL Ra mika Lipase 14 04/18/21 04/18/21 04/18/21 21:01 20:08 18:10 WBC RBC Hgb Hct MCV MCH MCHC RDW Plt Count MPV Neut % (Auto) Lymph % (Auto) [place] % (Auto) Eos % (Auto) Baso % (Auto) Neut # (Auto) Lymph # (Auto) [place] # (Auto) Eos # (Auto) Baso # (Auto) Nucleated RBC % (a uto) Nucleated RBCs # Sodium Potassium Chloride Carbon Dioxide Anion Gap BUN Creatinine GFR Calculation Glucose POC Glucose 111 H 45 L 161 H Calculated Osmolal ity Calcium Total Bilirubin AST ALT Alkaline Phosphata se Total Protein Albumin Globulin Triglycerides Cholesterol LDL Cholesterol, C alc HDL Cholesterol LDL/HDL Ratio Cholesterol/HDL Ra mika Lipase Vitals: Last Vital Signs Temp 97.3 F L 04/19/21 11:38 Pulse 92 04/19/21 11:38 Resp 24 H 04/19/21 11:38 BP 165/101 04/19/21 11:38 Pulse Ox 99 04/19/21 11:38 Discharge Plan Discharge Patient Disposition: Home Condition: Stable Prescriptions: Continued Lantus Solostar U-100 Insulin 100 unit/mL (3 mL) insulin pen 80 unit SUBCUT QAM RF: 0 ondansetron 4 mg tablet,disintegrating 4 mg PO Q8H MDD see pharmacy comment PRN (Reason: nausea and vomiting) 5 Days Qty: 15 RF: 0 oxycodone 5 mg tablet 5 mg PO Q4H MDD see pharmacy comment PRN (Reason: pain) Qty: 10 RF: 0 Referrals: Shanti Rizzo DO [Physician] - 1 week (Please call Tuesday morning to schedule a hospital follow-up appointment. ) Discharge Diet: Diabetic Discharge Activity: Resume usual activity Patient Instructions: Pancreatitis (GEN), Opioid Safety Coding Level of Care Code Acute Chg [facility] note Diagnoses Abdominal pain, epigastric R10.13 Nausea and vomiting in adult R11.2 Dehydration E86.0 Pancreatitis, recurrent K85.90
--- NOTE | 2021-04-19 15:08 | PM.EVENT ---
Event Note Event Note: I was consulted to see Mr. Alfaro for his nonspecific abdominal pain by Dr. Ferris, soon after she contacted me I came over to the hospital to evaluate the patient and review his medical records but unfortunately I was just told by the nursing staff that the gentleman left AGAINST MEDICAL ADVICE.
--- NOTE | 2021-04-19 15:16 | P.EN_ITS ---
Event Note Event Note: PATIENT LEFT AGAINST MEDICAL ADVICE Pt left the hospital without having a complete evaluation. He was admitted for possible acute pancreatitis and dehydration. He was given IV fluids and toradol for pain. After having breakfast this morning, he started having epigastric pain for which he was given morphine. He felt better for a while until he started complaining of pain again. Pt also pulled out his IV multiple times during the stay and cried without tears and was really loud on the floor. manager location discussed with his brother over the phone who told us patient is living in a pop up camper at this time and is doing poorly financially. He also does not have insurance at this time and is self pay. Brother recommended that we get psychiatry to see him for possible depression. I placed a psych consult with Dr. Toro and informed him of the patient. Dr Toro was to see him shortly. In the mean time, nurse called me over the phone to inform me that patient is having pain again at this time. I right away called and discussed with Dr. Salomon to consult on the patient for evaluation incase something was being missed as repeat CT scan with pancreatic protocol was negative today. I also ordered another morphine IV dose. RN went to room to tell patient about surgery consult. Patient stated he wanted to leave AMA and got up and started to walk out of the hospital. I was called by RN to be informed of this. I immediately went to walk over the [facility] floor and I met patient in hallway as he was leaving. I tried to talk to him and tell him of the plan of surgical consult and the fact that we had ordered pain medication for him and that we need to evaluate him further. Patient refused to listen to anything I had to say and did not stop for a second to discuss anything further. He kept walking and left. Unsure if he actually signed any AMA forms. Brother updated over the phone who stated hes a grown man and he makes his own decisions .
--- NOTE | 2021-04-19 15:28 | PC.NURSE ---
at 1423 Dr. Ferris was notified that the patient had been crying and thrashing around in his bed since getting back from ct scan. upon entering room to give pt. his afternoon insulin he was calmly sitting up in bed. He stated that he had talked to his brother and stated that he can't believe that you think I am a dope head. If I was just here wanting drugs I wouldn't be asking for morphine, I would be asking for demerol. That shit is way stronger! While talking his voice escalated to yelling. He then yelled get this shit off of me, I'm leaving! , while sticking his arm out and gesturing to his IV and wristbands. I tried explaining that Dr. Ferris consulted a general surgeon that will be in to see him shortly. I explained that his pain is concerning to both Dr. Ferris and I, and that the CT scan looked clear, but she consulted the general surgeon to be sure that there isn't something else going on. He stated I don't care about seeing another doctor, I got a ride and I'm getting out of here. Get this shit out of me! again gesturing to his IV. I removed his IV at this time. I told him to stay in his room so I could call the doctor and notify her, and get a form for him to sign. He got up and started dressing as I left the room. Dr. Ferris was notified of the patient wanting to leave and stated that she was going to come up to talk to him. After hanging up with Dr. Ferris the patient was coming down the hallway to the nurses station. I told the patient that Dr. Ferris was coming up to the floor to talk to him and asked if he could wait just a minute, and he refused. I explained the risks of leaving AMA, although the patient was talking over me, and he signed the AMA form. Herminia EVANS notified security that the pt was upset and leaving AMA, and provided them with a description of the patient, to ensure the patient safely left the facility. Dr. Ferris notified that the patient had left the floor at 1500. During all of my interactions with the patient, at no point did he make any statements about harming himself or others.
--- NOTE | 2021-04-19 16:07 | PC.NURSE ---
DURING MY INTERACTION WITH THE PATIENT, PATIENT WAS CRYING HYSTERICALLY AND SAYING HOW MUCH HE MISSED HIS MOTHER AND THAT HE DIDN'T HAVE ANYONE TO RELY ON. PATIENT NEVER MADE ANY STATEMENTS ABOUT HARMING SELF OR OTHERS.
== END 2021-04-19 15:00 | disposition left against medical advice (07) ==
LOC: ER 08:45 → MEDSURG 20:16
PROVIDERS: Emergency Medicine; Admitting Provider Internal Medicine; Emergency Provider Family Medicine; Visit Provider Internal Medicine
DX: R10.13 Epigastric pain (principal); R11.2 Nausea with vomiting, unspecified; E86.0 Dehydration; K85.90 Acute pancreatitis without necrosis or infection, unspecified; Z79.4 Long term (current) use of insulin; E11.65 Type 2 diabetes mellitus with hyperglycemia; Z53.21 Procedure and treatment not carried out due to patient leaving prior to being seen by health care provider
CPT/HCPCS: 36415; 36416; 74177; 80053; 80061; 80306; 81003; 82962; 83605; 83690; 84145; 84443; 85025; 86140; 96361; 96372; 96374; 96375; 99285; C9113; G0378; J1170; J1644; J1815; J1885; J2270; J2405; J2550; J3480; J7030; Q9967

== ENCOUNTER 2021-04-20 14:52 | Emergency (ER) | payer SELFPAY ==
[2021-04-20 15:02] VITALS: TEMP 37.1; BMI 20.5
[2021-04-20 15:05] VITALS: BP 180/118; PULSE 94; RESP 24; O2SAT 97; BMI 20.5
--- NOTE | 2021-04-20 15:16 | ECG_ITS ---
[facility] Test Date: 2021-04-20 Pat Name: Robin Alfaro Department: Room: Gender: Male Track Leader: : 1970 Requested By: Jimmy Robb Order Number: [id number] Grant MD: Chanell Hill M.D. Measurements Intervals [place] Rate: 76 P: 67 WI: 151 QRS: -30 QRSD: 86 T: 66 QT: 372 QTc: 419 Interpretive Statements SINUS RHYTHM BORDERLINE LEFT AXIS DEVIATION [QRS AXIS < -20] No previous ECG available for comparison Electronically Signed On 04-21-2021 5:01:18 PLISSE MACHINE OPERATOR by Chanell Hill M.D. [id number]
[2021-04-20] MEDS: sodium chloride 0.9% 1,000 ML 999 ML IV (15:40)
[2021-04-20 15:41] LABS: Basophils % 0.4 %; Eosinophils % 0.4 %; Hematocrit 37.7 % (42.0-52.0); Hemoglobin 12.5 g/dL (11.7-16.6); Lymphocytes # 1.2 10^3/uL (0.8-4.8); Lymphocytes % 17.1 %; Mean Corpuscular HGB Conc 33.2 g/dL (30.0-36.0); Mean Corpuscular Hemoglobin 27.5 pg (28.0-34.0); Mean Platelet Volume 12.2 fL (7.4-10.4); Monocytes # 0.3 10^3/uL (0.2-0.9); Monocytes % 4.3 %; Neutrophils # 5.37 10^3/uL (1.8-7.7); Neutrophils % 77.4 %; Nucleated Red Blood Cells % 0 %; Platelet Count 131 10^3/cmm (130-400); Red Blood Count 4.54 10^6/uL (4.1-5.3); Red Cell Distribution Width 13.2 % (12.1-15.1)
[2021-04-20 16:01] LABS: Lactic Sepsis W/Reflex 1.1 mmol/L (0.5-2.2)
[2021-04-20 16:02] LABS: Alanine Aminotransferase 7 U/L (0-41); Alkaline Phosphatase 65 IU/L (40-130); Blood Urea Nitrogen 11 mg/dL (6-20); Calcium 7.5 mg/dL (8.5-10.5); Carbon Dioxide 27 mmol/L (22-29); Chloride 99 mmol/L (98-107); Globulin 2.1 g/dL (1.3-4.6); Glomerular Filtration Rate 143.2 mL/min (90-130); Glucose 210 mg/dL (65-115); Lipase 12 U/L (13-60); Osmolality Calculated 288 mOsm/kg (285-295); Sodium 136 mmol/L (136-145); Total Bilirubin 0.6 mg/dL (0.15-1.2); Total Protein 6.1 g/dL (6.6-8.7)
--- NOTE | 2021-04-20 16:05 | W.ED.ABDPA2 ---
HPI - Abdominal Pain General: Chief Complaint: Abdominal Pain Stated Complaint: L FLANK , ABD PAIN Time Seen by Provider: 04/20/21 15:10 History of Present Illness: HPI narrative: 51-year-old male presents to the emergency room complaining of what he describes as pancreatic attack. He has been here multiple times in the last week or so with similar complaints. He is moaning nonstop he is angry he states he is not here for drugs. I had seen him the last time he came to the emergency room we admitted him at that time because he did have a an increase in his lipase and had bounced back from previous visit. During that hospitalization surgical consult and psychiatric consult were ordered by Dr. Ferris patient became upset he felt he was being dismissed because of drug-seeking behavior and left AMA. He returns to the emergency room today complaining again of the same pain he clutches at the left side of his upper back in the area of the kidney he denies any dysuria urgency or frequency he denies any hematemesis or coffee-ground emesis. He has not had any fever sweats or chills. He does admit to regular use of marijuana for years. MD elicited complaint: abdominal pain Pertinent past history: other (Recurrent pancreatitis) Onset (ago): week(s) Pain Consistency: constant Location: LUQ and L flank Severity: severe Quality: cramping and stabbing Radiation: none Exacerbating factors: nothing Relieving factors: nothing Associated Symptoms: Reports anorexia, GI cramping, nausea and poor appetite; Denies belching, bloating, change in bowel habits, change in stool character, chills, coffee ground emesis, constipation, diarrhea, dyspepsia, dysuria, excessive flatus, fever(s), heartburn, hematochezia, hematuria, hematemesis, fecal incontinence, loose stools, melena, syncope and vomiting Review of Systems Const: Denies: fever(s) or chills Card: Denies: syncope GI: Reports: nausea and GI cramping; Denies: vomiting, hematemesis, coffee ground emesis, heartburn, diarrhea, constipation, bloating, belching, excessive flatus, fecal incontinence, change in bowel habits, change in stool character, hematochezia or melena : Denies: dysuria or hematuria PFS ED PFSH: Medical History History of pancreatitis Hyperglycemia due to diabetes mellitus Pancreatic pseudocyst Surgical History History of cholecystectomy History of laparotomy History of pancreatic surgery Course Vital Signs: Vital signs: Vital Signs Temperature 98.7 F 04/20/21 15:02 Pulse Rate 94 04/20/21 15:05 Respiratory Rate 24 H 04/20/21 15:05 Blood Pressure 180/118 04/20/21 15:05 Pulse Oximetry 97 04/20/21 15:05 MDM - Abdominal Pain MDM Narrative: Medical decision making narrative: Labs imaging and EKG reviewed. Patient had significant improvement with Haldol for his nausea. Near complete resolution of all of his symptoms. We will go ahead and discharge him home. Encourage patient to avoid marijuana use. Lab Data: Labs: Lab Results 04/20/21 04/20/21 04/20/21 15:25 15:25 15:25 WBC 7.0 10^3/uL 10^3/ uL (4.0-10.0) RBC 4.54 10^6/uL 10^6 /uL (4.1-5.3) Hgb 12.5 g/dL g/dL (11.7-16.6) Hct 37.7 % L % (42.0-52.0) MCV 83.0 fl fl (80-94) MCH 27.5 pg L pg (28.0-34.0) MCHC 33.2 g/dL g/dL (30.0-36.0) RDW 13.2 % % (12.1-15.1) Plt Count 131 10^3/cmm 10^3 /cmm (130-400) MPV 12.2 fL H fL (7.4-10.4) Neut % (Auto) 77.4 % % Lymph % (Auto) 17.1 % % [place] % (Auto) 4.3 % % Eos % (Auto) 0.4 % % Baso % (Auto) 0.4 % % Neut # (Auto) 5.37 10^3/uL 10^3 /uL (1.8-7.7) Lymph # (Auto) 1.2 10^3/uL 10^3/ uL (0.8-4.8) [place] # (Auto) 0.3 10^3/uL 10^3/ uL (0.2-0.9) Eos # (Auto) 0.0 10^3/uL 10^3/ uL (0.0-0.8) Baso # (Auto) 0.0 10^3/uL 10^3/ uL (0.0-0.1) Nucleated RBC % (a uto) 0 % % Nucleated RBCs # 0.0 /100WBC /100W BC Sodium 136 mmol/L mmol/L (136-145) Potassium 3.6 mmol/L mmol/L (3.5-5.1) Chloride 99 mmol/L mmol/L (98-107) Carbon Dioxide 27 mmol/L mmol/L (22-29) Anion Gap 13.6 (5-19) BUN 11 mg/dL mg/dL (6-20) Creatinine 0.6 mg/dL L mg/dL (0.7-1.2) GFR Calculation 143.2 mL/min H mL /min (90-130) Glucose 210 mg/dL H mg/dL (65-115) Calculated Osmolal ity 288 mOsm/kg mOsm/ kg (285-295) Lactic Acid 1.1 mmol/L mmol/L (0.5-2.2) Calcium 7.5 mg/dL L mg/dL (8.5-10.5) Total Bilirubin 0.6 mg/dL mg/dL (0.15-1.2) AST 19 U/L U/L (0-40) ALT 7 U/L U/L (0-41) Alkaline Phosphata se 65 IU/L IU/L (40-130) Creatine Kinase 449 U/L H* U/L (39-308) Total Protein 6.1 g/dL L g/dL (6.6-8.7) Albumin 4.0 g/dL g/dL (3.5-5.2) Globulin 2.1 g/dL g/dL (1.3-4.6) Lipase 12 U/L L U/L (13-60) Urine Color Urine Appearance Urine pH Ur Specific Gravit y Urine Protein Urine Glucose (UA) Urine Ketones Urine Blood Urine Nitrate Urine Bilirubin Urine Urobilinogen Ur Leukocyte Viry ase 04/20/21 16:51 WBC RBC Hgb Hct MCV MCH MCHC RDW Plt Count MPV Neut % (Auto) Lymph % (Auto) [place] % (Auto) Eos % (Auto) Baso % (Auto) Neut # (Auto) Lymph # (Auto) [place] # (Auto) Eos # (Auto) Baso # (Auto) Nucleated RBC % (a uto) Nucleated RBCs # Sodium Potassium Chloride Carbon Dioxide Anion Gap BUN Creatinine GFR Calculation Glucose Calculated Osmolal ity Lactic Acid Calcium Total Bilirubin AST ALT Alkaline Phosphata se Creatine Kinase Total Protein Albumin Globulin Lipase Urine Color Yellow (Yellow) Urine Appearance Clear (CLEAR) Urine pH 7 (5-7) Ur Specific Gravit y 1.005 (1.005-1.030) Urine Protein Neg (Negative) Urine Glucose (UA) 2+ H (Normal) Urine Ketones 1+ H (Negative) Urine Blood Neg (Negative) Urine Nitrate Negative (Negative) Urine Bilirubin Neg (Negative) Urine Urobilinogen Norm mg/dL mg/dL (Negative) Ur Leukocyte Viry ase Negative (Negative) Discharge Plan Discharge Patient Disposition: Home Clinical Impression: Cannabinoid hyperemesis syndrome, Cannabis hyperemesis syndrome concurrent with and due to cannabis dependence Condition: Stable Prescriptions: No Action Lantus Solostar U-100 Insulin 100 unit/mL (3 mL) insulin pen 80 unit SUBCUT QAM RF: 0 oxycodone 5 mg tablet 5 mg PO Q4H PRN (Reason: pain) Qty: 10 RF: 0 Discharge Orders: Discharge ED (Routine); Ordered 04/20/21 Ordered By: Jimmy Ruby Discharge Diet: Full LIquid Discharge Activity: Resume usual activity Patient Instructions: Opioid Safety Activity Restrictions/Additional Instructions: Encourage abstinence from marijuana products. Clear liquid diet for 24 to 48 hours and advance as tolerated. Use ondansetron previously prescribed for nausea. Coding Level of Care Code ED Signal Tower Operator for Ira Cobian
[2021-04-20 16:06] LABS: Anion Gap 13.6 (5-19); Creatine Phosphokinase 449 U/L (39-308); Potassium 3.6 mmol/L (3.5-5.1)
[2021-04-20 16:07] LABS: Aspartate Amino Transferase 19 U/L (0-40)
[2021-04-20] MEDS: ketorolac 30 mg/mL INJ IVP (16:08)
[2021-04-20] MEDS: haloperidol inj 5 mg/mL INJ 1 mL 2.5 MG IVP (16:08)
[2021-04-20] MEDS: orphenadrine 30 mg/mL Inj 2 mL 60 MG IVP (16:50)
--- NOTE | 2021-04-20 17:02 | PC.NURSE ---
reviewed discharge instructions with patient, patient verbalizes understanding of all instructions and follow up, IV removed and patient ambulated from ED without issue
[2021-04-20 17:05] LABS: Add Urine Microscopic? NO; Charge for UA Resulting for Rev
[2021-04-20 17:16] LABS: Bilirubin Urine Neg (Negative); Blood Urine Neg (Negative); Glucose Urine UA 2+ (Normal); Ketones Urine 1+ (Negative); Leukocyte Esterase Urine Negative (Negative); Nitrate Urine Negative (Negative); Protein Urine Neg (Negative); Specific Gravity, Urine 1.005 (1.005-1.030); Urine Appearance Clear (CLEAR); Urine Color Yellow (Yellow); Urobilinogen Urine Norm (Negative); pH Urine 7 (5-7)
== END 2021-04-20 17:04 | disposition home or self-care (01) ==
PROVIDERS: Emergency Provider Family Medicine
DX: R11.2 Nausea with vomiting, unspecified (principal); F12.20 Cannabis dependence, uncomplicated; E11.9 Type 2 diabetes mellitus without complications; Z79.4 Long term (current) use of insulin
CPT/HCPCS: 80053; 81003; 82550; 83605; 83690; 85025; 93005; 96361; 96374; 96375; 99284; J1630; J1885; J2360; J7030

== ENCOUNTER 2021-04-23 17:36 | Emergency (ER) | payer SELFPAY ==
[2021-04-23 17:47] VITALS: BP 152/98; PULSE 96; RESP 20; TEMP 37.1; O2SAT 98; BMI 19.2
--- NOTE | 2021-04-23 18:07 | W.ED.ABDPA2 ---
HPI - Abdominal Pain General: Chief Complaint: Abdominal Pain Stated Complaint: ABD PAIN Time Seen by Provider: 04/23/21 18:06 History of Present Illness: HPI narrative: Mr Alfaro is a 51-year-old gentleman with reported history of prior cholecystectomy and removal of pancreatic pseudocyst with what he describes as pancreas attached to stomach and recurrent episodes of pancreatitis who presents to the emergency department due to abdominal pain. Symptoms have been ongoing for approximately 1.5 weeks. I initially saw him on 04/17 and at that time he was improved to the point of being satisfactory for discharge. He returned on 04/18 and was admitted to the hospital at that time. He left the hospital on 04/19 AGAINST MEDICAL ADVICE. He returns today due to continued pain. He describes severe intensity Left flank pain associated with nausea and vomiting. He does endorse marijuana use however reports that this is longstanding and not specifically related to his current symptoms. Overall the course of symptoms has persisted. No other specific changes in health, exacerbating, relieving factors. Patient is tearful which somewhat limits history. MD elicited complaint: abdominal pain and flank pain Pertinent past history: other Onset (ago): week(s) Pain Consistency: constant Location: L flank Severity: severe Quality: stabbing and aching Radiation: none Migration to: no migration Exacerbating factors: eating and vomiting Relieving factors: medication Associated Symptoms: Reports nausea and vomiting Review of Systems General: Reports: 10 or more systems reviewed and unremarkable except in HPI and below GI: Reports: nausea and vomiting [facility] ED PFSH: Medical History History of pancreatitis Hyperglycemia due to diabetes mellitus Pancreatic pseudocyst Surgical History History of cholecystectomy History of laparotomy History of pancreatic surgery Physical Exam Const: COMMON NORMALS: alert GENERAL APPEARANCE: in distress (pain) and anxious HENMT: COMMON NORMALS: normocephalic, atraumatic, external ears normal and Normal external nose present HEAD & SCALP: normocephalic and atraumatic NOSE: Normal external nose present EXTERNAL EAR: Yes external ears normal Eye: COMMON NORMALS: conjunctivae normal CONJUNCTIVA: Yes conjunctivae normal SCLERA: sclerae normal Neck/C-Spine: COMMON NORMALS: supple GENERAL: Yes trachea midline Resp: COMMON NORMALS: normal respiratory effort EFFORT & INSPECTION: Yes able to speak in complete sentences Cardio: COMMON NORMALS: regular rate and regular rhythm RATE: regular rate RHYTHM: regular rhythm GI: COMMON NORMALS: Soft to palpation PALPATION: Yes Soft to palpation, Yes Tenderness to palpation present (GI), No Guarding due to palpation present (GI) and No Rigid due to palpation Extremity: GENERAL: Yes normal exam except as noted and No edema Neuro: COMMON NORMALS: moves all extremities SENSORIUM/ORIENTATION: Yes alert and No Orientation impaired Psych: ATTITUDE: Yes agitated MOOD & AFFECT: Yes tearful Course ED course: - Patient was seen and evaluated by me at bedside - Patient placed on cardiac monitors, IV access obtained - Initial evaluation notable for abdominal tenderness as above -Symptom treatment including antiemetic use of Haldol ordered - Labs notable for no leukocytosis. Metabolic panel with mild evidence of dehydration, hypokalemia present, replenishment ordered. - Upon serial reexamination after treatment the patient was improved. I discussed results of ED evaluation up to this point as patient was expressing a desire to leave. I explained that without urine and CT imaging I cannot rule out more significant pathology. Patient does not feel that these tests are necessary and is concerned about getting additional supplies for where he is staying [facility] to [facility]. Symptoms are markedly improved. There is no evidence of peritonitis on abdominal exam. Patient is afebrile. He denies specific urinary complaints other than decreased output. Most likely this is all related to chronic pain issues and therefore patient can reasonably be discharged. Based on my evaluation at time of discharge she does have capacity to make medical decisions. - Based on patient history, evaluation, labs, and imaging as interpreted the most likely cause of the patient's condition is chronic abdominal pain secondary to likely pancreatitis - I explained followup plan and return precautions. The patient verbalized understanding and felt safe for discharge. - Patient discharged in satisfactory condition. Note: Click bubbles or prepopulated gomez in note writing are used for assistance with data collection and billing and are inherently more limited than narrative and other text portions of this note. Please use narrative for additional clinical history and defer to narrative/free test for any case of contradictory information. If information appears in only free text or click bubble it should be considered present or absent as reported. Please contact note poem writer for clarifications of clinical information or contradictory information. MDM is a brief summary, contradictory or erroneous seeming information should be clarified and full note should be reviewed. Vital Signs: Vital signs: Vital Signs Temperature 98.7 F 04/23/21 17:47 Pulse Rate 78 04/23/21 20:59 Respiratory Rate 18 04/23/21 20:59 Blood Pressure 160/94 04/23/21 20:59 Pulse Oximetry 98 04/23/21 20:59 MDM - Abdominal Pain MDM Narrative: Medical decision making narrative: 51-year-old gentleman with history of chronic pancreatitis presenting with recurrent abdominal pain. Does have tenderness on abdominal exam. Associated nausea and vomiting. Symptoms markedly improved with Haldol and fluids. He tolerated p.o. intake. He declined further CT imaging or urinalysis and reported that he had to leave the emergency department. Left emergency department in much improved condition. Medical Records: Attestation: I reviewed the patient's medical records. Lab Data: Attestation: I reviewed the patient's lab results. Labs: Lab Results 04/23/21 04/23/21 04/23/21 19:33 19:33 20:31 WBC 8.9 10^3/uL 10^3/ uL (4.0-10.0) RBC 4.59 10^6/uL 10^6 /uL (4.1-5.3) Hgb 12.8 g/dL g/dL (11.7-16.6) Hct 37.9 % L % (42.0-52.0) MCV 82.6 fl fl (80-94) MCH 27.9 pg L pg (28.0-34.0) MCHC 33.8 g/dL g/dL (30.0-36.0) RDW 13.6 % % (12.1-15.1) Plt Count 150 10^3/cmm 10^3 /cmm (130-400) MPV 11.6 fL H fL (7.4-10.4) Neut % (Auto) 75.3 % % Lymph % (Auto) 20.4 % % Beaver % (Auto) 3.7 % % Eos % (Auto) 0.2 % % Baso % (Auto) 0.2 % % Neut # (Auto) 6.72 10^3/uL 10^3 /uL (1.8-7.7) Lymph # (Auto) 1.8 10^3/uL 10^3/ uL (0.8-4.8) Beaver # (Auto) 0.3 10^3/uL 10^3/ uL (0.2-0.9) Eos # (Auto) 0.0 10^3/uL 10^3/ uL (0.0-0.8) Baso # (Auto) 0.0 10^3/uL 10^3/ uL (0.0-0.1) Nucleated RBC % (a uto) 0 % % Nucleated RBCs # 0.0 /100WBC /100W BC Sodium 135 mmol/L L mmol /L (136-145) Potassium 3.2 mmol/L L mmol /L (3.5-5.1) Chloride 95 mmol/L L mmol/ L (98-107) Carbon Dioxide 24 mmol/L mmol/L (22-29) Anion Gap 19.2 H (5-19) BUN 13 mg/dL mg/dL (6-20) Creatinine 0.6 mg/dL L mg/dL (0.7-1.2) GFR Calculation 143.2 mL/min H mL /min (90-130) Glucose 153 mg/dL H mg/dL (65-115) Calculated Osmolal ity 283 mOsm/kg L mOs m/kg (285-295) Calcium 8.2 mg/dL L mg/dL (8.5-10.5) Total Bilirubin 0.5 mg/dL mg/dL (0.15-1.2) AST 10 U/L U/L (0-40) ALT 6 U/L U/L (0-41) Alkaline Phosphata se 66 IU/L IU/L (40-130) Total Protein 6.7 g/dL g/dL (6.6-8.7) Albumin 4.2 g/dL g/dL (3.5-5.2) Globulin 2.5 g/dL g/dL (1.3-4.6) Lipase 10 U/L L U/L (13-60) Urine Color Yellow (Yellow) Urine Appearance Cloudy (CLEAR) Urine pH 7 (5-7) Ur Specific Gravit y 1.010 (1.005-1.030) Urine Protein Neg (Negative) Urine Glucose (UA) Norm (Normal) Urine Ketones Negative (Negative) Urine Blood 3+ H (Negative) Urine Nitrate Negative (Negative) Urine Bilirubin Neg (Negative) Urine Urobilinogen Norm mg/dL mg/dL (Negative) Ur Leukocyte Viry ase Negative (Negative) Urine RBC 25-40 /hpf H /hpf (0-2) Urine WBC 0-4 /hpf H /hpf (0-5) Ur Squamous Epith Cells 0-4 /hpf H /hpf (0-5) Amorphous Sediment 2+ /hpf /hpf Urine Bacteria None /hpf /hpf (NONE) Urine Mucus 2+ /hpf /hpf Discharge Plan Discharge Patient Disposition: Home Clinical Impression: Abdominal pain, Flank pain, Dehydration, Hypokalemia Condition: Stable Prescriptions: New Protonix 40 mg tablet,delayed release (DR/EC) 40 mg PO BID 14 Days Qty: 28 RF: 0 No Action Lantus Solostar U-100 Insulin 100 unit/mL (3 mL) insulin pen 80 unit SUBCUT QAM RF: 0 oxycodone 5 mg tablet 5 mg PO Q4H PRN (Reason: pain) Qty: 10 RF: 0 Discharge Orders: Discharge ED (Routine); Ordered 04/23/21 Ordered By: Dexter Lanza Discharge Diet: Advance as tolerated and Clear Liquid Discharge Activity: Increase activity as tolerated Patient Instructions: Hypokalemia (ED), Abdominal Pain (ED), Flank Pain (ED) Activity Restrictions/Additional Instructions: Thank you for visiting the emergency department. You were seen and evaluated for abdominal/flank pain. The exact cause of your symptoms is unclear. Your labs were notable for mild dehydration and low potassium. Without obtaining urinalysis or performing imaging if needed I cannot be sure of the cause of your symptoms, even with urinalysis and imaging it may be that we do not find a definite cause. Please follow-up with your primary care provider. Return to the emergency department for worsening symptoms or anything else that you are concerned about and feel needs emergency department evaluation. Coding Level of Care Code ED Curtain Feller Blindstitch for Ira Fwdebo Exam Comprehensive
[2021-04-23] MEDS: acetaminophen 1,000 MG/100 ML PIGGYBACK 400 MG IV (19:38)
[2021-04-23] MEDS: ketorolac 30 mg/mL INJ 15 MG IVP (19:38)
[2021-04-23] MEDS: haloperidol inj 5 mg/mL INJ 1 mL 2 MG IVP (19:38)
[2021-04-23] MEDS: sodium chloride 0.9% 1,000 ML 999 ML IV ×2 (19:38→20:20)
[2021-04-23 19:41] VITALS: BP 127/107; PULSE 87; RESP 20; O2SAT 99
[2021-04-23 19:43] LABS: Basophils % 0.2 %; Eosinophils % 0.2 %; Hematocrit 37.9 % (42.0-52.0); Hemoglobin 12.8 g/dL (11.7-16.6); Lymphocytes # 1.8 10^3/uL (0.8-4.8); Lymphocytes % 20.4 %; Mean Corpuscular HGB Conc 33.8 g/dL (30.0-36.0); Mean Corpuscular Hemoglobin 27.9 pg (28.0-34.0); Mean Corpuscular Volume 82.6 fl (80-94); Mean Platelet Volume 11.6 fL (7.4-10.4); Monocytes # 0.3 10^3/uL (0.2-0.9); Monocytes % 3.7 %; Neutrophils # 6.72 10^3/uL (1.8-7.7); Neutrophils % 75.3 %; Nucleated Red Blood Cells % 0 %; Platelet Count 150 10^3/cmm (130-400); Red Blood Count 4.59 10^6/uL (4.1-5.3); Red Cell Distribution Width 13.6 % (12.1-15.1); White Blood Count 8.9 10^3/uL (4.0-10.0)
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
[2021-04-23 19:59] LABS: Alanine Aminotransferase 6 U/L (0-41); Albumin Level 4.2 g/dL (3.5-5.2); Alkaline Phosphatase 66 IU/L (40-130); Anion Gap 19.2 (5-19); Aspartate Amino Transferase 10 U/L (0-40); Blood Urea Nitrogen 13 mg/dL (6-20); Calcium 8.2 mg/dL (8.5-10.5); Carbon Dioxide 24 mmol/L (22-29); Chloride 95 mmol/L (98-107); Globulin 2.5 g/dL (1.3-4.6); Glomerular Filtration Rate 143.2 mL/min (90-130); Glucose 153 mg/dL (65-115); Lipase 10 U/L (13-60); Osmolality Calculated 283 mOsm/kg (285-295); Potassium 3.2 mmol/L (3.5-5.1); Sodium 135 mmol/L (136-145); Total Bilirubin 0.5 mg/dL (0.15-1.2); Total Protein 6.7 g/dL (6.6-8.7)
[2021-04-23] MEDS: potassium chloride ER 20 mEq Tablet 40 MEQ PO (20:19)
[2021-04-23 20:59] VITALS: BP 160/94; PULSE 78; RESP 18; O2SAT 98
[2021-04-23 21:00] LABS: Add Urine Microscopic? YES; Bilirubin Urine Neg (Negative); Blood Urine 3+ (Negative); Glucose Urine UA Norm (Normal); Ketones Urine Negative (Negative); Leukocyte Esterase Urine Negative (Negative); Mucus Urine 2+ /hpf; Nitrate Urine Negative (Negative); Protein Urine Neg (Negative); RBC Urine 25-40 /hpf (0-2); Squamous Epithelial Cell Urine 0-4 /hpf (0-5); Urine Appearance Cloudy (CLEAR); Urine Color Yellow (Yellow); Urobilinogen Urine Norm (Negative); WBC Urine 0-4 /hpf (0-5); pH Urine 7 (5-7)
[2021-04-23 21:01] LABS: Add Urine Culture? Yes; Amorphous Sediment Urine 2+ /hpf
== END 2021-04-23 21:02 | disposition home or self-care (01) ==
PROVIDERS: Emergency Provider Emergency Medicine
DX: R10.9 Unspecified abdominal pain (principal); E86.0 Dehydration; E87.6 Hypokalemia; Z79.4 Long term (current) use of insulin; E11.9 Type 2 diabetes mellitus without complications
CPT/HCPCS: 80053; 81001; 83690; 85025; 87086; 96361; 96365; 96375; 99284; J1630; J1885; J7030